=== PATIENT | male | born 1935 | race Caucasian/White ===

== ENCOUNTER 2023-09-04 23:36 | Emergency (ER) | payer MEDICARE, SELFPAY ==
--- NOTE | ~2023-09-04 | CT_ITS ---
EXAMINATION: CT HEAD WITHOUT CONTRAST CLINICAL INFORMATION: Facial droop, on anticoagulants. COMPARISON: None TECHNIQUE: Contiguous axial imaging was performed from the skull base to vertex without intravenous administration of contrast. This CT examination was performed using dose optimization techniques as appropriate, variously including the following: *Automated exposure control *Adjustment of mA and/or kV according to patient size (this includes techniques or standardized protocols for targeted exams where dose is matched to indication/reason for exam; i.e. extremities or head) *Use of iterative reconstruction technique DLP: 694 mGy-cm FINDINGS: There is a 0.5 cm hyperdense focus in the mid to right pasquale suspicious for a bleed. There is a 1 x 0.5 cm partially calcified hyperdense extra-axial lesion along the right anterior interhemispheric falx, most suggestive of a meningioma. No evidence of edematous territorial infarction. Scattered hypoattenuation in the periventricular and deep white matter are consistent with moderate to severe microangiopathy. Jamil-white matter differentiation is preserved. Proportional prominence of the ventricles and sulcal spaces. No evidence for obstructive hydrocephalus. No abnormal mass effect or midline shift. No extra-axial fluid collections. No acute soft tissue or osseous abnormalities. The mastoid air cells and paranasal sinuses are clear. Bilateral lens extraction. CT/CT head/brain wo IV con IMPRESSION: 1. There is a 0.5 cm hyperdense focus in the mid to right pasquale suspicious for a bleed. 2. No evidence of edematous territorial infarction. 3. 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 4. There is a 1 x 0.5 cm partially calcified hyperdense extra-axial lesion along the right anterior interhemispheric falx, most suggestive of a meningioma. This critical result was discussed with Bryce Mendoza MD at 09/05/2023 12:22 AM and it was ascertained that the content and urgency of the report was understood at the time of direct communication.
--- NOTE | 2023-09-04 23:47 | ECG_ITS ---
Test Reason : COLONJL Blood Pressure : / mmHG Vent. Rate : 082 BPM Atrial Rate : 000 BPM P-R Int : 000 ms QRS Dur : 128 ms QT Int : 400 ms P-R-T Axes : 000 -16 001 degrees QTc Int : 467 ms Atrial fibrillation with premature ventricular or aberrantly conducted complexes Right bundle branch block Inferior infarct , age undetermined Abnormal ECG No previous ECGs available Referred By: Bryce Mendoza Electronically Signed By:DENNIS GOMEZ
--- NOTE | 2023-09-04 23:49 | ED.NEUROSD ---
HPI - Neuro Symptoms/Deficit General Chief Complaint: Stroke Stated Complaint: right side face droop Time Seen by Provider: 09/04/23 23:38 Source: patient, EMS and RN notes reviewed Mode of arrival: EMS Limitations: no limitations History of Present Illness HPI Narrative: Patient 87 years old with history of paroxysmal AFib on Eliquis [facility] speech and right-sided facial droop and pinpoint right Lkw was 2030 patient denied any headache no vomiting no other deficits when arrived in the ER patient communicating without any dysarthria or aphasia but slow to speak moving all 4 extremities questionable right facial droop GCS 15 denies any headache no vomiting Related Data Allergies Allergy/AdvReac Type Severity Reaction Status Date / Time codeine Allergy Unknown Unknown Verified 09/04/23 23:53 gabapentin Allergy Unknown Unknown Verified 09/04/23 23:53 Penicillins Allergy Unknown Unknown Verified 09/04/23 23:53 Review of Systems Review of Systems: Yes all other systems are reviewed and are negative [facility] Past Medical History Medical History Muscle weakness Polyneuropathy CKD (chronic kidney disease) HTN (hypertension) Paroxysmal A-fib Social History Social History Smoked in Last 30 Days: No Use of substances other than those prescribed or required for medical reasons: No Advance Directives: No Advance Directives Information Provided: No Physical Exam Vital Signs: Vital Signs: Last Vital Signs Temp 97.2 F 09/05/23 01:47 Pulse 89 09/05/23 01:47 Resp 14 09/05/23 01:47 BP 112/63 09/05/23 01:47 Pulse Ox 96 09/05/23 01:47 O2 Del Method Room Air 09/05/23 01:47 BMI result Body Mass Index 28.3 Appearance: Alert. Oriented X2. No acute distress. Eyes: Right pupil 2 mm left pupil 5 mm reacting to light ENT: Pharynx normal. Oral Mucosa moist Neck: Normal inspection. Neck supple. CVS: Irregularly irregular heart rate no murmur or rub or gallop, Pulses normal. Respiratory: No respiratory distress. Equal air entry bilateral, no wheezing/rales/rhonchi Abdomen: Soft and nontender. Bowel sounds are present, no mass palpable, no CVA tenderness Skin: Skin warm and dry. Normal skin color. Normal skin turgor. Extremities: No lower extremity edema. No calf tenderness Neuro: Oriented X 2. Slow to speak normal comprehension questionable right facial droop No motor deficit. No sensory deficit.No cerebellar signs , cranial nerves II-XII intact Medical Decision Making Medical Decision Making [facility] Narrative: Patient with history of AFib on Eliquis with slow speech with unequal pupil right side 2 mm left-sided [address] scan showed 0.5 cm pontine bleed ??. Patient NIHSS score is 0 I did not appreciate any facial droop patient is speaking normally with normal expression and tone no focal deficits noticed. Case discussed with neurosurgical hand edge bander Dr. 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 Patient is at his baseline with stable vitals discharge [facility] Differential Diagnosis Differential Diagnoses: The differential diagnosis associated with the presentation includes CVA/bleed Lab Data [facility] Lab Attestation statement: I reviewed the patient's lab results. 09/05/23 00:18 09/05/23 00:18 Labs: Lab Results 09/05/23 09/05/23 Range/Units 00:18 00:29 WBC 8.6 (4.8-10.8) X10*3/uL RBC 3.63 L (4.60-5.80) X10*6/uL Hgb 12.7 L (14.0-18.0) g/dl Hct 39.0 L (42.0-52.0) % MCV 107.4 H (80.0-98.0) fL MCH 35.0 H (27.0-33.0) pg MCHC 32.6 (31.0-36.0) g/dl RDW 14.6 (11.0-16.0) % Plt Count 183 (160-400) X10*3/uL MPV 10.4 (9.4-12.4) fL Immature Gran % (Auto) 0.3 (0.0-0.4) % Neut % (Auto) 61.5 (45-73) % Lymph % (Auto) 21.2 (20-40) % [place] % (Auto) 11.4 H (2-11) % Eos % (Auto) 5.1 H (0-4) % Baso % (Auto) 0.5 (0-2) % Lymph # (Auto) 1.8 (1.2-4.9) X10*3/uL [place] # (Auto) 1.0 (0.1-1.2) X10*3/uL Eos # (Auto) 0.4 (0.0-0.4) X10*3/uL Baso # (Auto) 0.0 (0.0-0.2) X10*3/uL Abs Immat Gran (auto) 0.03 (0.00-0.03) X10*3/uL Absolute Neuts (auto) 5.3 (2.0-8.3) x10*3/uL Absolute Nucleated RBC 0.000 (0.0-0.012) X10*3/uL Nucleated RBC % (auto) 0.0 (0.0-0.2) /100WBC PT 15.7 H (11.1-13.3) SEC INR 1.3 H (0.9-1.1) Sodium 141 (135-145) mmol/L Potassium 3.8 (3.3-5.1) mmol/L Chloride 110 H (96-108) mmol/L Carbon Dioxide 21 L (22-29) mmol/L Anion Gap 14 (12-20) BUN 45 H (9-16) mg/dL Creatinine 1.33 (0.5-1.4) mg/dL Estim Creat Clear Calc 41.6 Estimated GFR 51 POC Glucose 101 (60-115) mg/dL Random Glucose 112 (60-115) mg/dL Calcium 9.9 (8.4-10.2) mg/dL Total Bilirubin 0.7 (0.0-1.0) mg/dL AST 42 H (5-37) U/L ALT 67 H (0-40) U/L Alkaline Phosphatase 128 H (39-117) U/L Total Protein 7.1 (6.5-8.0) g/dL Albumin 3.4 L (3.5-5.0) g/dL Independent Interpretation I performed an independent interpretation of an: EKG and CT Scan Interpretation: Atrial fibrillation with ventricular rate of 82 beats per minute right bundle-branch block no acute ST T wave changes no acute ischemia Radiology Impression Discussion of test interpretation with radiology: I have reviewed the radiologist's reading. External Record Review External record reviewed: Other (From [facility] MRI and CT scan on 07/14/2023 and 07/17/2023) NIH Stroke Scale Internal: Initial- Upon Arrival Level of Consciousness: Alert Level of Consciousness Questions: Answers both questions correctly Level of Consciousness Commands: Performs both tasks correctly Best Gaze: Normal Visual: No visual loss Facial Palsy: Normal Motor Arm (Right): No drift Motor Arm (Left): No drift Motor Leg (Right): No drift Motor Leg (Left): No drift Limb Ataxia: Absent Sensory: Normal Best Language: No aphasia Dysarthia: Normal Extinction and Inattention: No abnormality Score: 0 Critical Care Time Critical Care Time Critical Care Time: Yes Total Critical Care Time: 55 Attestation: The patient was critically ill with a high probability of imminent or life threatening deterioration. I spent greater than 60???minutes of discontinuous time evaluating the patient,delivering critical care at the bedside, discussing and evaluating pertinent data with consultants. Critical care time does not include time spent performing separately billable procedures or teaching. Total time spent performing critical care was 55 ???minutes. 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
[2023-09-04 23:52] VITALS: BP 131/64; PULSE 85; RESP 20; TEMP 36.6; O2SAT 98; BMI 28.3
[2023-09-04 23:54] VITALS: PULSE 74
--- NOTE | 2023-09-05 00:15 | PC.NURSE ---
2x attempts for iv by this RN without success. Dr. Mendoza aware states no need for iv at this time. nerupa pct at bedside attempting to obtain labs.
[2023-09-05 00:23] LABS: MANUAL DIFF FLAG NO
[2023-09-05 00:24] LABS: Basophils Percent Auto 0.5 % (0-2); Eosinophils Absolute Auto 0.4 X10*3/uL (0.0-0.4); Eosinophils Percent Auto 5.1 % (0-4); Hemoglobin 12.7 g/dl (14.0-18.0); Imm Gran Abs Auto 0.03 X10*3/uL (0.00-0.03); Imm Gran Pct Auto 0.3 % (0.0-0.4); Lymphocytes Absolute Auto 1.8 X10*3/uL (1.2-4.9); Lymphocytes Percent Auto 21.2 % (20-40); Mean Corpuscular HGB Conc 32.6 g/dl (31.0-36.0); Mean Corpuscular Volume 107.4 fL (80.0-98.0); Mean Platelet Volume 10.4 fL (9.4-12.4); Monocytes Percent Auto 11.4 % (2-11); Neutrophils Absolute Auto 5.3 x10*3/uL (2.0-8.3); Neutrophils Percent Auto 61.5 % (45-73); Platelet Count 183 X10*3/uL (160-400); Red Blood Count 3.63 X10*6/uL (4.60-5.80); Red Cell Distribution Width 14.6 % (11.0-16.0); White Blood Count 8.6 X10*3/uL (4.8-10.8)
[2023-09-05 00:34] LABS: Glucose, Whole Blood 101 mg/dL (60-115)
[2023-09-05 00:37] VITALS: BP 132/70; PULSE 80; RESP 16; TEMP 36.3; O2SAT 97
--- NOTE | 2023-09-05 00:38 | MHC.EDTECH ---
PATIENT WAS BIBA FROM [facility] ,PATIENT WAS INCONIENT OF SMALL AMOUNT OF LOOSE STOOL ,CARE GIVEN AND BEDDING CHANGE ,EKG TAKEN AND WAS READ BY PROVIDER ,BLOOD DRAWN AND SENT TO LAB ,VITALS TAKEN AND PATIENT IS HOOKED UP TO [facility] .
[2023-09-05 00:39] LABS: Alanine Aminotransferase 67 U/L (0-40); Albumin Level 3.4 g/dL (3.5-5.0); Alkaline Phosphatase 128 U/L (39-117); Anion Gap 14 (12-20); Aspartate Amino Transferase 42 U/L (5-37); Bilirubin Total 0.7 mg/dL (0.0-1.0); Blood Urea Nitrogen 45 mg/dL (9-16); Calcium 9.9 mg/dL (8.4-10.2); Carbon Dioxide 21 mmol/L (22-29); Chloride 110 mmol/L (96-108); Creatinine Clr Calc Pharmacy 41.6; Estimated Glomerular Filt Rate 51; Glucose Random 112 mg/dL (60-115); Potassium 3.8 mmol/L (3.3-5.1); Sodium 141 mmol/L (135-145); Total Protein 7.1 g/dL (6.5-8.0)
[2023-09-05 00:41] LABS: INTERNATIONAL NORM RATIO 1.3 (0.9-1.1); Prothrombin Time 15.7 SEC (11.1-13.3)
[2023-09-05 01:47] VITALS: BP 112/63; PULSE 89; RESP 14; TEMP 36.2; O2SAT 96
--- NOTE | 2023-09-05 03:34 | PC.NURSE ---
report given to [facility] nurse educated on d/c instructions. per Dr. Mendoza findings are chronic and baseline for pt. questioned snf rn if he'd like to speak with Dr. Mendoza for further explanation, verbalize he understands d/c instructions and is in agreement with pt d/c back to facility.
== END 2023-09-05 02:55 | disposition skilled nursing facility (03) ==
PROVIDERS: Emergency Provider Internal Medicine; PCP Internal Medicine
DX: R47.81 Slurred speech (principal); I48.91 Unspecified atrial fibrillation; R51.9 Headache, unspecified; R29.810 Facial weakness; Z79.01 Long term (current) use of anticoagulants; Z79.899 Other long term (current) drug therapy
CPT/HCPCS: 36415; 70450; 80053; 82947; 85025; 85610; 93005; 99284

== ENCOUNTER → 2023-09-04 23:47 | Outpatient (BNV) | payer MEDICARE, SELFPAY | PROVIDERS: Emergency Provider Internal Medicine; PCP Internal Medicine; Visit Provider Internal Medicine | DX: I48.91 Unspecified atrial fibrillation (principal); R94.31 Abnormal electrocardiogram [ECG] [EKG] | CPT/HCPCS: 93010 ==

== ENCOUNTER 2024-11-19 22:38 | Inpatient (IN) | payer MEDICARE, MEDICAID, SELFPAY ==
--- NOTE | ~2024-11-19 | XR_ITS ---
CLINICAL HISTORY: sob Chest X-ray, 1 View COMPARISON: None FINDINGS: No consolidation. Mild atelectasis at the left lung base. No pleural effusion. No pneumothorax. No cardiomegaly. No acute fracture. IMPRESSION: No acute findings. This document has been electronically signed by: Jimi Snider MD on 11/20/2024 01:55:37
--- NOTE | ~2024-11-19 | CT_ITS ---
EXAMINATION: CT ABDOMEN PELVIS WITHOUT IV CONTRAST HISTORY: shock, evaluate for hydronephrosis COMPARISON: There are no prior studies for comparison. TECHNIQUE: CT scan of the abdomen and pelvis was performed without contrast using standard departmental protocol. Coronal and sagittal reformatted images were generated and reviewed. Oral contrast material was not administered at the request of the referring physician. This CT exam was performed with one or more of the following dose reduction techniques: automated exposure control, adjustment of the mA and/or kV according to patient size, use of iterative reconstruction technique. DLP: 754 mGy-cm FINDINGS: LOWER CHEST: There is subsegmental atelectasis versus scarring at both lung bases. There is no pleural effusion. CARDIOVASCULATURE: The heart is normal in size. There is no pericardial effusion. LIVER: The liver is normal in size and contour. The liver has an unremarkable unenhanced appearance. GALLBLADDER / BILE DUCTS: The gallbladder is unremarkable. There is no intra or extrahepatic biliary ductal dilatation. SPLEEN: The spleen is normal in size and has an unremarkable unenhanced appearance. PANCREAS: The pancreas has an unremarkable unenhanced appearance. ADRENAL GLANDS: Unremarkable. KIDNEYS/RETROPERITONEUM: No renal calculi are identified. There is no hydronephrosis. LYMPH NODES: No retroperitoneal lymphadenopathy is identified in the abdomen or pelvis. VASCULATURE: The abdominal aorta is normal in caliber. MESENTERY/PERITONEUM: No free fluid. No masses. There is no free intraperitoneal gas. STOMACH: The stomach is collapsed, limiting evaluation. SMALL BOWEL: The small bowel is normal in caliber. COLON: There is extensive diverticulosis throughout the entire colon. There is an inflammatory process centered at the hepatic flexure of the colon with associated wall thickening and pericolonic inflammatory stranding. Findings may represent diverticulitis. There is no adjacent extraluminal gas or fluid collection. APPENDIX: Normal. URINARY BLADDER/PELVIC ORGANS: The urinary bladder is collapsed with Bella catheter. There is mild enlargement of the prostate. 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 CT/CT abdomen pelvis wo IV con IMPRESSION: 1. Inflammatory process centered at the hepatic flexure of the colon with associated diverticulosis, wall thickening, and pericolonic fluid. Findings may represent diverticulitis. Follow-up colonoscopy is recommended to exclude an underlying mass. 2. No evidence of hydronephrosis. Electronically signed by: Negro Rodríguez MD 11/20/2024 11:20 AM EDT RP
[2024-11-19 22:40] VITALS: BP 112/70; PULSE 99; O2SAT 19
[2024-11-19 22:45] VITALS: BP 114/54; PULSE 94; RESP 20; TEMP 39.2; O2SAT 86; BMI 34.1
[2024-11-19 22:51] VITALS: O2SAT 87
--- NOTE | 2024-11-19 23:08 | ED.GENADULT ---
HPI - General Adult General Chief complaint: Urogenital-Male Stated complaint: ?sepsis, foul smelling urine, ?uti, fever Time Seen by Provider: 11/19/24 22:41 Source: patient and EMS Mode of arrival: EMS Limitations: no limitations History of Present Illness ED Provider: Dr. Melany Chris HPI narrative: Patient comes to the emergency room via ambulance from a custodial facility, [facility]. according to the staff, patient has had foul smelling urine and fever. According to the patient, other than the fever he has no complaints, denies abdominal pain. [facility] the [facility] reported that the patient had a fever of 101.8 at 21:15. Related Data Allergies Allergy/AdvReac Type Severity Reaction Status Date / Time codeine Allergy Unknown Unknown Verified 11/19/24 22:47 gabapentin Allergy Unknown Unknown Verified 11/19/24 22:47 Penicillins Allergy Unknown Unknown Verified 11/19/24 22:47 Review of Systems Review of Systems: Constitutional : No Weight loss, complaining of fever and chills, No Night Sweats, No Fatigue, No Malaise ENT/Mouth : No Hearing loss, No Ear Pain, No Nasal Congestion, No Sinus Pain, No Hoarseness, No sore throat, No Rhinorrhea, No Swallowing Difficulty Eyes: No Eye Pain, No Swelling, No Redness, No Foreign Body, No Discharge, No Vision Changes Cardiovascular : No Chest Pain, No SOB, No Dyspnea on Exertion, No Orthopnea, No Edema, No Palpitations Respiratory : No Cough, No Sputum, No Wheezing, No Smoke Exposure, No Dyspnea Gastrointestinal : No Nausea, No Vomiting, No Diarrhea, No Constipation, No abdominal Pain, No Hematochezia, No Melena Genitourinary : no irregular bleeding, No Dysuria, No Urinary Frequency, No Hematuria, No Urinary Incontinence, No Urgency, No Flank Pain, No Urinary Flow Changes, No Hesitancy Musculoskeletal : No joint pain, No Myalgias, No Joint Swelling Skin : No Skin Lesions, No rash Neuro : No Weakness, No Numbness, No Paresthesias, No Loss of Consciousness, No Dizziness, No Headache Psych : No Anxiety/Panic, No Depression, No SI/HI/AH/VH, No Social Issues, Heme/Lymph: No Bruising, No Bleeding,No Lymphadenopathy Endocrine : No Polyuria, No Polydipsia, No Temperature Intolerance PMFSH Past Medical History Medical History Muscle weakness Polyneuropathy CKD (chronic kidney disease) HTN (hypertension) Paroxysmal A-fib Physical Exam ED Vital Signs: Vital Signs - 24 hr 11/19/24 22:45 11/19/24 22:51 11/19/24 23:17 Temperature 102.5 F H Pulse Rate 94 88 Respiratory Rate 20 20 Blood Pressure 114/54 L 89/42 L Pulse Oximetry 86 L 87 L 93 Oxygen Delivery Method Room Air Room Air Nasal Cannula Oxygen Flow Rate 2 11/19/24 23:44 11/19/24 23:51 11/20/24 00:06 Temperature Pulse Rate 97 Respiratory Rate 21 H Blood Pressure 89/50 L 94/47 L 86/45 L Pulse Oximetry 94 Oxygen Delivery Method Nasal Cannula Ambu-Bag Oxygen Flow Rate 11/20/24 00:37 11/20/24 00:39 11/20/24 01:04 Temperature 99.6 F Pulse Rate 75 78 81 Respiratory Rate 24 H Blood Pressure 76/42 L 84/40 L 88/49 L Pulse Oximetry 95 Oxygen Delivery Method Nasal Cannula Oxygen Flow Rate 1 11/20/24 01:17 Temperature Pulse Rate 78 Respiratory Rate 22 H Blood Pressure 102/56 L Pulse Oximetry 97 Oxygen Delivery Method Nasal Cannula Oxygen Flow Rate 1 BMI result Body Mass Index 34.1 Const Other: Appearance: Alert. Oriented X3. No acute distress. Eyes: Pupils equal, round and reactive to light. ENT: Pharynx normal. Neck: Normal inspection. Neck supple. No lymph nodes noted. No crepitus CVS: Normal heart rate and rhythm. Pulses normal. Normal S1 and S2 Respiratory: No respiratory distress. Breath sounds normal. No Wheezing. No rales Abdomen: Soft and nontender. No rigidity. No distention. Skin: Skin warm and dry. Normal skin color. Normal skin turgor. Extremities: No lower extremity edema. No Lacerations. No Rash Neuro: Oriented X 3. No motor deficit. No sensory deficit. Moving all extremities. No slurred speech. CN 2 through 12 grossly intact Psych: calm, cooperative, normal affect Course Course Course Narrative: empirically, patient is being treated with IV fluids and IV antibiotics. Patient is being treated based on ideal weight of 55 kg, patient is obese. all of patient's labs pending patient denies any pain at this time Medications Administered Generic Name Dose Route Start Last Admin Trade Name Freq PRN Reason Stop Dose Admin Norepinephrine Bitartrate 8 mg in 250 mls @ 0 mls/hr 11/20/24 00:30 11/20/24 01:04 Levophed IVCONT 0.07 mcg/kg/min .Q0M SOLE 12.2 mls/hr Titration Protocol Per Protocol Discontinued Medications Generic Name Dose Route Start Last Admin Trade Name Freq PRN Reason Stop Dose Admin Acetaminophen 975 mg 11/19/24 23:04 11/19/24 23:12 Acetaminophen 325 Mg Tablet PO 11/19/24 23:05 975 mg ONCE ONE Administration Ceftriaxone Sodium 1 gm 11/19/24 23:04 11/19/24 23:12 Ceftriaxone Sodium 1 Gm Vial IVPUSH 11/19/24 23:05 1 gm ONCE ONE Administration Sodium Chloride 1,700 mls @ 999 mls/hr 11/19/24 23:04 11/20/24 01:05 Ns IVCONT 11/20/24 00:46 Infused .Q1H43M ONE Infusion Azithromycin 500 mg/ Sodium 250 mls @ 125 mls/hr 11/19/24 23:04 11/19/24 23:24 Chloride IV 11/20/24 01:03 125 mls/hr ONCE ONE Administration Albumin Human 50 mls @ 100 mls/hr 11/19/24 23:45 11/20/24 01:06 Kedbumin 25 % IV 11/20/24 00:44 Infused Q30M SOLE Infusion Medical Decision Making Medical Decision Making MDM Narrative: at 23:26, patient's blood pressure is 89/42, patient has a fever of 102.5 rectally. It was also informed that the patient's oxygen saturation is 86% on room air. At this time, 23:26 sepsis alert was called patient already receiving IV fluids and IV antibiotics my interpretation of labs: Patient's white blood cell count is 12.1, patient is chronically anemic. Patient's creatinine today is 1.73, previously over a year ago was 1.33. Unclear if this is new for the patient. Patient does have history of CKD stage 3. Lactic acid 1.4 LFTs within normal limits. It was noted the patient's BNP is 473. To patient's knowledge and then his documentation, there is no history of CHF. Patient's x-ray pending. Patient already received IV fluids and IV antibiotics. Patient's albumin slightly decreased, patient also receiving IV albumin urinalysis is positive for UTI, patient has already been covered with IV Fluids and antibiotics despite fluids and antibiotics and albumin, patient's blood pressure keeps dropping, currently 76/42. Levophed has been started. Patient will need an ICU admission. Chest x-ray my interpretation: No overt pulmonary edema, possible infiltrate in the right lower lobe. Patient was already treated with IV antibiotics. Patient Levophed, blood pressure 102/ 56 I discussed the patient with Dr. Pierce, patient being admitted to the ICU Differential Diagnosis Differential Diagnoses: The differential diagnosis associated with the presentation includes ( UTI, pneumonia, CHF, viral URI) Admission/Observation Consideration of admission/observation: Escalation of care including admission/observation considered Consult Healthcare Provider Management of the patient was discussed with: Hospitalist Lab Data MDM Lab Attestation statement: I reviewed the patient's lab results. 11/19/24 22:55 11/19/24 22:55 Labs: Lab Results 11/19/24 11/19/24 11/19/24 Range/Units 22:55 22:56 23:56 WBC 12.1 H (4.8-10.8) X10*3/uL RBC 3.09 L (4.60-5.80) X10*6/uL Hgb 10.7 L (14.0-18.0) g/dl Hct 31.8 L (42.0-52.0) % MCV 102.9 H (80.0-98.0) fL MCH 34.6 H (27.0-33.0) pg MCHC 33.6 (31.0-36.0) g/dl RDW 13.2 (11.0-16.0) % Plt Count 158 L (160-400) X10*3/uL MPV 10.9 (9.4-12.4) fL Immature Gran % (Auto) 0.3 (0.0-0.4) % Neut % (Auto) 93.9 H (45-73) % Lymph % (Auto) 3.2 L (20-40) % [place] % (Auto) 2.3 (2-11) % Eos % (Auto) 0.0 (0-4) % Baso % (Auto) 0.3 (0-2) % Lymph # (Auto) 0.4 L (1.2-4.9) X10*3/uL [place] # (Auto) 0.3 (0.1-1.2) X10*3/uL Eos # (Auto) 0.0 (0.0-0.4) X10*3/uL Baso # (Auto) 0.0 (0.0-0.2) X10*3/uL Abs Immat Gran (auto) 0.04 H (0.00-0.03) X10*3/uL Absolute Neuts (auto) 11.3 H (2.0-8.3) x10*3/uL Absolute Nucleated RBC 0.000 (0.0-0.012) X10*3/uL Nucleated RBC % (auto) 0.0 (0.0-0.2) /100WBC Smear Tech's Comments VERIFIED Sodium 140 (135-145) mmol/L Potassium 4.0 (3.3-5.1) mmol/L Chloride 106 (96-108) mmol/L Carbon Dioxide 24 (22-29) mmol/L Anion Gap 14 (12-20) BUN 33 H (9-16) mg/dL Creatinine 1.73 H (0.5-1.4) mg/dL Estim Creat Clear Calc 31.5 Estimated GFR 38 Random Glucose 120 H (60-115) mg/dL Lactic Acid 1.4 (0.5-2.0) mmol/L Calcium 8.7 D (8.4-10.2) mg/dL Total Bilirubin 0.7 (0.0-1.0) mg/dL Direct Bilirubin 0.3 (0.0-0.5) mg/dL AST 30 (5-37) U/L ALT 14 (0-40) U/L Alkaline Phosphatase 70 (39-117) U/L B-Natriuretic Peptide 473 H (<100) pg/mL Total Protein 6.2 L (6.5-8.0) g/dL Albumin 3.3 L (3.5-5.0) g/dL Urine Color Urine Appearance Urine pH (5.0-9.0) Ur Specific [place] (1.005-1.025) Urine Protein (Neg-Trace) mg/dL Urine Glucose (UA) (Negative) mg/dL Urine Ketones (Negative) mg/dL Urine Blood (Negative) Urine Nitrite (Negative) Ur Leukocyte Esterase (Negative) Urine RBC (0-2) /HPF Urine WBC (0-5) /HPF Ur Squamous Epith Cells (0-2) /HPF Urine Bacteria (None Seen) Hyaline Casts (0-2) /LPF Influenza Type A (PCR) NEGATIVE (Negative) Influenza Type B (PCR) NEGATIVE (Negative) RSV RNA Qual (PCR) NEGATIVE (Negative) SARS-CoV-2 RNA (RT-PCR) NEGATIVE (Negative) 11/19/24 Range/Units 23:59 WBC (4.8-10.8) X10*3/uL RBC (4.60-5.80) X10*6/uL Hgb (14.0-18.0) g/dl Hct (42.0-52.0) % MCV (80.0-98.0) fL MCH (27.0-33.0) pg MCHC (31.0-36.0) g/dl RDW (11.0-16.0) % Plt Count (160-400) X10*3/uL MPV (9.4-12.4) fL Immature Gran % (Auto) (0.0-0.4) % Neut % (Auto) (45-73) % Lymph % (Auto) (20-40) % [place] % (Auto) (2-11) % Eos % (Auto) (0-4) % Baso % (Auto) (0-2) % Lymph # (Auto) (1.2-4.9) X10*3/uL [place] # (Auto) (0.1-1.2) X10*3/uL Eos # (Auto) (0.0-0.4) X10*3/uL Baso # (Auto) (0.0-0.2) X10*3/uL Abs Immat Gran (auto) (0.00-0.03) X10*3/uL Absolute Neuts (auto) (2.0-8.3) x10*3/uL Absolute Nucleated RBC (0.0-0.012) X10*3/uL Nucleated RBC % (auto) (0.0-0.2) /100WBC Smear Tech's Comments Sodium (135-145) mmol/L Potassium (3.3-5.1) mmol/L Chloride (96-108) mmol/L Carbon Dioxide (22-29) mmol/L Anion Gap (12-20) BUN (9-16) mg/dL Creatinine (0.5-1.4) mg/dL Estim Creat Clear Calc Estimated GFR Random Glucose (60-115) mg/dL Lactic Acid (0.5-2.0) mmol/L Calcium (8.4-10.2) mg/dL Total Bilirubin (0.0-1.0) mg/dL Direct Bilirubin (0.0-0.5) mg/dL AST (5-37) U/L ALT (0-40) U/L Alkaline Phosphatase (39-117) U/L B-Natriuretic Peptide (<100) pg/mL Total Protein (6.5-8.0) g/dL Albumin (3.5-5.0) g/dL Urine Color Yellow Urine Appearance Cloudy Urine pH >= 9.0 (5.0-9.0) Ur Specific [place] 1.015 (1.005-1.025) Urine Protein 30 (1+) H (Neg-Trace) mg/dL Urine Glucose (UA) Negative (Negative) mg/dL Urine Ketones Negative (Negative) mg/dL Urine Blood Moderate (2+) H (Negative) Urine Nitrite Positive H (Negative) Ur Leukocyte Esterase Large (3+) H (Negative) Urine RBC >20 H (0-2) /HPF Urine WBC >50 H (0-5) /HPF Ur Squamous Epith Cells 0-2 (0-2) /HPF Urine Bacteria 4+ (None Seen) Hyaline Casts 0-2 (0-2) /LPF Influenza Type A (PCR) (Negative) Influenza Type B (PCR) (Negative) RSV RNA Qual (PCR) (Negative) SARS-CoV-2 RNA (RT-PCR) (Negative) Independent Interpretation I performed an independent interpretation of an: Plain X-Ray Independent Historian Clinical information obtained from an independent historian. History obtained from or confirmed by: EMS Critical Care Time Critical Care Time Critical Care Time: Yes Total Critical Care Time: 75 Attestation: I have personally provided critical care time. Time includes review of lab data, radiology results, discussion with consultants, and monitoring for potential decompensation. Intervention performed as documented. Discharge Plan Discharge Clinical Impression: Sepsis due to urinary tract infection, New onset of congestive heart failure Patient Disposition: Admitted As Inpatient Print Language: Greek
[2024-11-19] MEDS: Acetaminophen 325 MG TABLET 975 MG PO (23:12)
[2024-11-19] MEDS: cefTRIAXone sodium 1 GM VIAL IVPUSH (23:12)
[2024-11-19] MEDS: 0.9 % Sodium Chloride 1,700 ML 999 ML IVCONT (23:16)
[2024-11-19 23:17] VITALS: BP 89/42; PULSE 88; RESP 20; O2SAT 93
[2024-11-19 23:18] LABS: Basophils Percent Auto 0.3 % (0-2); Hematocrit 31.8 % (42.0-52.0); Hemoglobin 10.7 g/dl (14.0-18.0); Imm Gran Abs Auto 0.04 X10*3/uL (0.00-0.03); Imm Gran Pct Auto 0.3 % (0.0-0.4); Lymphocytes Absolute Auto 0.4 X10*3/uL (1.2-4.9); Lymphocytes Percent Auto 3.2 % (20-40); MANUAL DIFF FLAG SCAN; Mean Corpuscular HGB Conc 33.6 g/dl (31.0-36.0); Mean Corpuscular Hemoglobin 34.6 pg (27.0-33.0); Mean Corpuscular Volume 102.9 fL (80.0-98.0); Mean Platelet Volume 10.9 fL (9.4-12.4); Monocytes Absolute Auto 0.3 X10*3/uL (0.1-1.2); Monocytes Percent Auto 2.3 % (2-11); Neutrophils Absolute Auto 11.3 x10*3/uL (2.0-8.3); Neutrophils Percent Auto 93.9 % (45-73); Platelet Count 158 X10*3/uL (160-400); Red Blood Count 3.09 X10*6/uL (4.60-5.80); Red Cell Distribution Width 13.2 % (11.0-16.0); SCAN SMEAR FLAG 1; White Blood Count 12.1 X10*3/uL (4.8-10.8)
[2024-11-19] MEDS: Azithromycin 500 MG in 0.9 % Sodium Chloride 250 ML 125 MG IV (23:24)
[2024-11-19 23:27] LABS: Lactic Acid 1.4 mmol/L (0.5-2.0)
[2024-11-19 23:28] LABS: Alanine Aminotransferase 14 U/L (0-40); Albumin Level 3.3 g/dL (3.5-5.0); Alkaline Phosphatase 70 U/L (39-117); Anion Gap 14 (12-20); Aspartate Amino Transferase 30 U/L (5-37); Bilirubin Direct 0.3 mg/dL (0.0-0.5); Bilirubin Total 0.7 mg/dL (0.0-1.0); Blood Urea Nitrogen 33 mg/dL (9-16); Calcium 8.7 mg/dL (8.4-10.2); Carbon Dioxide 24 mmol/L (22-29); Chloride 106 mmol/L (96-108); Creatinine Clr Calc Pharmacy 31.5; Estimated Glomerular Filt Rate 38; Glucose Random 120 mg/dL (60-115); Sodium 140 mmol/L (135-145); Total Protein 6.2 g/dL (6.5-8.0)
[2024-11-19 23:33] LABS: B Type Natriuretic Peptide 473 pg/mL (<100)
[2024-11-19 23:38] LABS: SLIDE REVIEW VERIFIED
[2024-11-19 23:44] VITALS: BP 89/50; PULSE 97; RESP 21; O2SAT 94
[2024-11-19 23:51] VITALS: BP 94/47
[2024-11-20] VITALS (33 sets, daily range): BP systolic 76–144; BP diastolic 40–68; PULSE 54–81; RESP 13–24; TEMP 35.9–38.8; O2SAT 93–100; BMI 39.5
--- NOTE | 2024-11-20 | ECG_ITS ---
Test Reason : new onset chf Blood Pressure : */* mmHG Vent. Rate : 64 BPM Atrial Rate : 64 BPM P-R Int : 196 ms QRS Dur : 126 ms QT Int : 488 ms P-R-T Axes : 75 -12 -11 degrees QTcB Int : 503 ms Sinus rhythm with Premature atrial complexes Right bundle branch block Abnormal ECG When compared with ECG of 04-Sep-2023 23:57, Sinus rhythm has replaced Atrial fibrillation T wave inversion no longer evident in Anterior leads Referred By: Scarlett Bassett Electronically Signed By: FRANKLYN JIMENEZ MD
[2024-11-20 00:06] LABS: Appearance Urine Cloudy; Color Urine Yellow; Glucose Urine UA Negative (Negative); Leukocyte Esterase Urine Large (3+) (Negative); Nitrite Urine Positive (Negative); PH >= 9.0 (5.0-9.0); Specific Gravity - Urine 1.015 (1.005-1.025); UMIC TRIGGER UACC YES; Urine Blood Moderate (2+) (Negative); Urine Ketones Negative (Negative); Urine Protein 30 (1+) mg/dL (Neg-Trace)
[2024-11-20] MEDS: Albumin Human 25 % 50 ML 100 ML IV ×2 (00:08→00:35)
--- NOTE | 2024-11-20 00:12 | MHC.EDTECH ---
This pct assumed care of Patient at 2300 ,vitals taken ,Temp was not taken at this time ,because ZACHARIAH Perry said to hold off in getting temp until Tylenol has time to work ,urine sample collected ,rsv/covid swab collected all sent to lab ,Patient belonings list done ,all safety measure in Place .
[2024-11-20 00:26] LABS: Bacteria Urine 4+ (None Seen); Hyaline Casts Urine 0-2 /LPF (0-2); RBC Urine >20 /HPF (0-2); Squamous Epithelial Cell Urine 0-2 /HPF (0-2); UACC Culture Trigger YES; WBC Urine >50 /HPF (0-5)
[2024-11-20] MEDS: Norepinephrine Bitartrate/D5W 8 MG/250 ML PLAST..BAG 8.72 MG IVCONT (00:37)
[2024-11-20 00:41] LABS: Influenza A PCR NEGATIVE (Negative); Influenza B PCR NEGATIVE (Negative); Resp Syncy Virus RNA Qual PCR NEGATIVE (Negative); SARS COV2 PCR INHOUSE NEGATIVE (Negative)
--- NOTE | 2024-11-20 02:33 | PM.CCHP ---
History of Present Illness Date of Service: 11/20/24 Attending physician on admission: Pelon Sesay Chief Complaint: Sepsis, New onset CHF Mr Young is a 89 year old male with history of hypertension, paroxysmal A-Fib, chronic kidney disease and polyneuropathy who was sent to the emergency room from his skilled? nursing facility for a fever and malodorous urine. The pt denied any abdominal pain or other complaints.? On arrival to the emergency room, temp was 102.5, blood pressure 114/54, heart rate 94.? O2 sat 86% on room air. Laboratory data significant for? WBC 12.1, hemoglobin 10.7, hematocrit 31.8, platelet 158, BUN 33, creatinine 1.73, lactic acid 1.4, BNP 473.? Urinalysis indicative of a UTI.? Respiratory panel negative. Imaging: CXR showed no acute findings.? ED course:? The patient became hypotensive. He received 1700 mL normal saline per sepsis protocol. He was given? ceftriaxone 1 g, Azithromycin 500 mg, 1 bag albumin, acetaminophen 1 g. Despite receiving colloids, crystalloids, antibiotics, the patient remained hypotensive and was started on a norepinephrine drip. Review of Systems Constitutional: Constitutional: Reports fever(s) and Denies headache(s) Eyes: Eyes: Denies blurry vision ENT: Denies dizziness, Denies headache(s) and Denies nasal congestion Cardiovascular: Cardiovascular: Denies chest pain and Denies dyspnea Respiratory: Respiratory: Denies dyspnea Gastrointestinal: Gastrointestinal: Denies diarrhea, Denies nausea and Denies vomiting Genitourinary: Genitourinary: Reports no additional male genitourinary complaints and Reports as per HPI Integumentary/Breasts: Skin/Breast: Denies rash, Denies sores and Denies wounds Neurologic: Denies dizziness and Denies headache(s) Endocrine: Endocrine: Denies polyphagia and Denies polydipsia [facility] Past Medical History Medical History Muscle weakness Polyneuropathy CKD (chronic kidney disease) HTN (hypertension) Paroxysmal A-fib Social History Social History Household Members: None Housing: Skilled Nursing Do you presently have visiting nurse or other home services: No Patient Tobacco Use Status: Never used Tobacco e-Cigarette/Vaping Use: Never Used Use of substances other than those prescribed or required for medical reasons: No Currently Displaying Signs/Symptoms of Drug Intoxication Withdrawal: No Any prior treatment program specific to substance use: No Have you been hit, kicked, punched, or otherwise hurt by someone within the past year? If so, by whom?: No Do you feel safe in your current relationship?: No Current Relationship Is there a partner from a previous relationship who is making you feel unsafe now?: No Are you made to feel afraid or neglected: No Advance Directives: No Advance Directives Information Provided: Yes Advance Directives on File: No Do you have a plan to hurt others: No Plan Recently lost weight without trying: Unsure Nutrition Risks: No Nutritional Risk Poor oral hygiene: No Meds Allergies Allergy/AdvReac Type Severity Reaction Status Date / Time codeine Allergy Unknown Unknown Verified 11/19/24 22:47 gabapentin Allergy Unknown Unknown Verified 11/19/24 22:47 Penicillins Allergy Unknown Unknown Verified 11/19/24 22:47 Active Medications: Current Medications Heparin Sodium (Porcine) (Heparin Sodium,Porcine 5,000 Unit/Ml Vial) 5,000 unit SUBCUT Q12H SOLE Norepinephrine Bitartrate (Levophed) 8 mg in 250 mls @ 0 mls/hr IVCONT .Q0M SOLE; Protocol Last Titration: 11/20/24 01:04 Dose: 0.07 mcg/kg/min, 12.2 mls/hr Home Medications ?Medication ?Instructions ?Recorded ?Confirmed ?Last Taken ?Type acetaminophen 325 mg tablet 650 mg PO Q6H PRN Fever/Pain 11/20/24 11/20/24 Unknown History (Tylenol) apixaban 2.5 mg tablet (Eliquis) 2.5 mg PO BID 11/20/24 11/20/24 Unknown History ascorbic acid (vitamin C) 500 mg 500 mg PO DAILY 11/20/24 11/20/24 Unknown History tablet bisacodyl 10 mg rectal suppository 10 mg TN DAILY PRN Constipation 11/20/24 11/20/24 Unknown History carboxymethylcellulose sodium 1 drp ophthalmic (eye) Q4H PRN Dry 11/20/24 11/20/24 Unknown History Eyes cholecalciferol (vitamin D3) 50 50 mcg PO DAILY 11/20/24 11/20/24 Unknown History mcg (2,000 unit) tablet (Vitamin D3) escitalopram oxalate 10 mg tablet 10 mg PO DAILY 11/20/24 11/20/24 Unknown History gabapentin 100 mg tablet 100 mg PO BID 11/20/24 11/20/24 Unknown History magnesium hydroxide 400 mg/5 mL 30 ml PO DAILY PRN Constipation 11/20/24 11/20/24 Unknown History oral suspension (Milk of Magnesia) melatonin 3 mg tablet 3 mg PO BEDTIME PRN Sleep 11/20/24 11/20/24 Unknown History mirtazapine 15 mg tablet (Remeron) 15 mg PO DAILY 11/20/24 11/20/24 Unknown History multivitamin 1 tab PO DAILY 11/20/24 11/20/24 Unknown History omeprazole 20 mg capsule,delayed 20 mg PO DAILY@0630 11/20/24 11/20/24 Unknown History release polyethylene glycol 3350 17 gram 17 g PO DAILY PRN Constipation 11/20/24 11/20/24 Unknown History oral powder packet (Miralax) sennosides 8.6 mg-docusate sodium 1 tab-cap PO DAILY 11/20/24 11/20/24 Unknown History 50 mg capsule sodium phosphates 19 gram-7 118 ml TN DAILY PRN Constipation 11/20/24 11/20/24 Unknown History gram/118 mL enema (Fleet Enema) tamsulosin 0.4 mg capsule (Flomax) 0.4 mg PO DAILY@1700 11/20/24 11/20/24 Unknown History trolamine salicylate 10 % lotion 1 appl topical Q8H PRN Pain 11/20/24 11/20/24 Unknown History Physical Exam Vital Signs: Vital Signs: Last Vital Signs Temp 97.9 F 11/20/24 01:53 Pulse 68 11/20/24 01:53 Resp 22 H 11/20/24 01:53 BP 99/56 L 11/20/24 01:53 Pulse Ox 97 11/20/24 01:53 O2 Del Method Nasal Cannula 11/20/24 01:53 O2 Flow Rate 1 11/20/24 01:53 BMI result Body Mass Index 34.1 Const: General: no acute distress and alert Orientation/consciousness: patient oriented x3 (answering appropriately.) HEENT: Head: Yes normocephalic and Yes atraumatic General nose exam: Normal external nose present (Nares patent, septum midline, sinuses nontender bilaterally.) Mouth: Normal oral and palatal mucosa present (No thrush, tongue in midline, mucosa moist.) Throat: Yes other (No erythema, no exudate.) Neck: Neck: Yes supple (no thyromegaly, trachea midline.) Carotids: normal carotid upstroke Resp: Auscultation: clear to auscultation bilaterally (normal work of breathing, no accessory muscle use) Cardio: Jugular venous distension: no JVD Rate: regular rate Rhythm: regular rhythm Heart sounds: no gallops, no murmurs and no rubs Peripheral pulses: Peripheral pulses 2+ throughout GI: Palpation (GI): Soft to palpation (nondistended.) and nontender Neuro: General: patient oriented x3 (answering appropriately.) Extrem: General: Yes full ROM and Yes capillary refill normal Left lower extremity: edema Details: pitting and 1+ Psych: Affect: normal affect Attitude: cooperative Results Labs 11/21/24 05:14 11/21/24 05:14 Labs: Laboratory Results - last 24 hr 11/19/24 11/19/24 11/19/24 22:55 22:56 23:56 MCV 102.9 H MCH 34.6 H MCHC 33.6 RDW 13.2 Plt Count 158 L MPV 10.9 Immature Gran % (Auto) 0.3 Neut % (Auto) 93.9 H Lymph % (Auto) 3.2 L [place] % (Auto) 2.3 Eos % (Auto) 0.0 Baso % (Auto) 0.3 Lymph # (Auto) 0.4 L [place] # (Auto) 0.3 Eos # (Auto) 0.0 Baso # (Auto) 0.0 Abs Immat Gran (auto) 0.04 H Absolute Neuts (auto) 11.3 H Absolute Nucleated RBC 0.000 Nucleated RBC % (auto) 0.0 Smear Tech's Comments VERIFIED Anion Gap 14 Estim Creat Clear Calc 31.5 Estimated GFR 38 Random Glucose 120 H Lactic Acid 1.4 Calcium 8.7 D Total Bilirubin 0.7 Direct Bilirubin 0.3 AST 30 ALT 14 Alkaline Phosphatase 70 B-Natriuretic Peptide 473 H Total Protein 6.2 L Albumin 3.3 L Urine Color Urine Appearance Urine pH Ur Specific [place] Urine Protein Urine Glucose (UA) Urine Ketones Urine Blood Urine Nitrite Ur Leukocyte Esterase Urine RBC Urine WBC Ur Squamous Epith Cells Urine Bacteria Hyaline Casts Influenza Type A (PCR) NEGATIVE Influenza Type B (PCR) NEGATIVE RSV RNA Qual (PCR) NEGATIVE SARS-CoV-2 RNA (RT-PCR) NEGATIVE 11/19/24 23:59 MCV MCH MCHC RDW Plt Count MPV Immature Gran % (Auto) Neut % (Auto) Lymph % (Auto) [place] % (Auto) Eos % (Auto) Baso % (Auto) Lymph # (Auto) [place] # (Auto) Eos # (Auto) Baso # (Auto) Abs Immat Gran (auto) Absolute Neuts (auto) Absolute Nucleated RBC Nucleated RBC % (auto) Smear Tech's Comments Anion Gap Estim Creat Clear Calc Estimated GFR Random Glucose Lactic Acid Calcium Total Bilirubin Direct Bilirubin AST ALT Alkaline Phosphatase B-Natriuretic Peptide Total Protein Albumin Urine Color Yellow Urine Appearance Cloudy Urine pH >= 9.0 Ur Specific [place] 1.015 Urine Protein 30 (1+) H Urine Glucose (UA) Negative Urine Ketones Negative Urine Blood Moderate (2+) H Urine Nitrite Positive H Ur Leukocyte Esterase Large (3+) H Urine RBC >20 H Urine WBC >50 H Ur Squamous Epith Cells 0-2 Urine Bacteria 4+ Hyaline Casts 0-2 Influenza Type A (PCR) Influenza Type B (PCR) RSV RNA Qual (PCR) SARS-CoV-2 RNA (RT-PCR) Assessment and Plan (1) New onset of congestive heart failure: Status: Acute (2) Sepsis due to urinary tract infection: Status: Acute Plan 89 year old male with history of hypertension, paroxysmal A-Fib, chronic kidney disease and polyneuropathy?admitted to the ICU for management of sepsis and new onset congestive heart failure. Neuro:? No acute issues. Cardiac:? Sepsis- patient is hypotensive. Urine is positive for UTI? which is likely the source. Titrate off pressor as tolerated. BNP elevated. Patient has not have a history of heart failure.?Echocardiogram? In a.m. Pulmonary: No acute issues. Renal: ?DONNY. Underlying CKD. Monitor renal induces and urine output.? : UTI. Continue Ceftriaxone. GI:? No acute issues. Heme/Onc: ???No acute issues. ID:? Sepsis. UTI likely source. IV fluids were given in ER per sepsis protocol.? Cultures pending. Continue empiric coverage.? Psych: ??No acute issues. Misc: ?No acute issues. Prophylaxis: Pneumatic hoses, Heparin Diet: Cardiac Patient's care was discussed in detail with Dr. Sesay.? He is aware of all the above as well as the plan of care for this patient. Total time managing care of this patient today: 60 minutes.
--- NOTE | 2024-11-20 04:43 | HE.ICUCC ---
ICU Critical Care Nursing Note Assumed care of patient from ED. Patient A&Ox3. drowsy, asleep on arrival. SR with BBB, PAC's, and PVC's on telemetry LS clear, 1L O2NC Indwelling forrest catheter inserted, draining dark yellow urine, cloudy with sedi ment noted. Patient is bed bound at baseline Blanchable redness on bilateral buttocks
[2024-11-20] MEDS: Heparin Sodium,Porcine 5,000 UNIT/ML VIAL 5000 UNIT SUBCUT ×2 (05:41→17:03)
[2024-11-20 05:42] LABS: MANUAL DIFF FLAG NO
[2024-11-20 05:43] LABS: Basophils Absolute Auto 0.1 X10*3/uL (0.0-0.2); Basophils Percent Auto 0.5 % (0-2); Eosinophils Percent Auto 0.3 % (0-4); Imm Gran Abs Auto 0.11 X10*3/uL (0.00-0.03); Imm Gran Pct Auto 0.8 % (0.0-0.4); Lymphocytes Absolute Auto 0.8 X10*3/uL (1.2-4.9); Mean Corpuscular HGB Conc 33.3 g/dl (31.0-36.0); Mean Corpuscular Hemoglobin 35.6 pg (27.0-33.0); Mean Corpuscular Volume 106.8 fL (80.0-98.0); Mean Platelet Volume 10.8 fL (9.4-12.4); Monocytes Absolute Auto 0.7 X10*3/uL (0.1-1.2); Monocytes Percent Auto 4.8 % (2-11); Neutrophils Absolute Auto 12.3 x10*3/uL (2.0-8.3); Neutrophils Percent Auto 87.6 % (45-73); Platelet Count 144 X10*3/uL (160-400); Red Blood Count 2.81 X10*6/uL (4.60-5.80); Red Cell Distribution Width 13.4 % (11.0-16.0)
[2024-11-20 06:02] LABS: Phosphorus 3.4 mg/dL (2.7-4.5)
[2024-11-20 06:04] LABS: Albumin Level 3.3 g/dL (3.5-5.0); Anion Gap 13 (12-20); Blood Urea Nitrogen 30 mg/dL (9-16); Calcium 8.4 mg/dL (8.4-10.2); Carbon Dioxide 22 mmol/L (22-29); Chloride 111 mmol/L (96-108); Creatinine Clr Calc Pharmacy 32.6; Estimated Glomerular Filt Rate 36; Glucose Random 128 mg/dL (60-115); Magnesium 1.9 mg/dL (1.6-2.6); Potassium 3.9 mmol/L (3.3-5.1); Sodium 142 mmol/L (135-145)
--- NOTE | 2024-11-20 07:00 | CA_ITS ---
Transthoracic Echocardiogram Patient (Last, First, Middle): Juan Young, Gender: Male Date of : 1935 Age: 89 Procedure Date: 11/20/2024 Procedure Type: Transthoracic Echocardiogram Location: ICU Height: 165.1 cm Weight: 107.5 kg BSA: 2.13 m2 Heart Rate: 59 bpm BP: 125 / 57 mmHg Casino Attendant: RILEY Referring MD: Scarlett Bassett BECK TENDER Fire Marshal: Truman Torres MD Symptoms: new onset CHF Study Quality: Adequate w contrast ECG Rhythm: Bradycardia Conclusions: - 1. Normal LV ejection fraction 60 65% with grade 2 diastolic dysfunction 2. Moderately dilated left atrium 3. Mild aortic regurgitation 4. Mildly elevated right ventricular systolic pressure with mildly elevated right atrial pressures 5. No gross pericardial effusion Findings Procedure Information Contrast agent, definity, is being given per protocol without apparent complications. Left Ventricle Normal left ventricular size, thickness, and systolic function. The visually estimated ejection fraction is between 60-65%. Spectral Doppler is indicative of a pseudonormal filling pattern. E/E prime ratio is >15, consistent with elevated filling pressures. Evidence suggests grade II (moderate) diastolic dysfunction. Right Ventricle Mildly increased right ventricular cavity size. There is normal right ventricular systolic function. Atria The left atrium is moderately dilated. There is no evidence of interatrial shunt. The right atrium is mildly dilated. Aortic Valve The aortic valve was not well visualized. There is mild calcification of the aortic valve. There is no aortic valve stenosis. There is mild aortic valve regurgitation. Mitral Valve Likely normal mitral valve structure and function. There is trace mitral valve regurgitation. There is no mitral valve stenosis. Pulmonic Valve The pulmonic valve was not well visualized. Tricuspid Valve There is mild tricuspid valve regurgitation. Mildly elevated right atrial pressure. Mild pulmonary hypertension is present. Great Vessels The aorta was not well visualized. The pulmonary artery was not well visualized. Venous The inferior vena cava is mildly dilated. Pericardium/Pleural There is no evidence of pericardial effusion. Prior Study Comparison No prior study available for comparison. Measurements 2D Linear Measurements IVSd: 1.08 0.6-0.9/0.6-1.0 cm LVIDd: 4.48 3.9-5.3/4.2-5.9 cm LVIDd Index: 2.10 2.4-3.2/2.2-3.1 cm/m2 LVIDs: 2.90 2.0-3.6 cm LVPWd: 0.99 0.7-1.1 cm LA Diam: 4.80 2.7-3.8/3.0-4.0 cm LAIDs Index: 2.25 1.5-2.3 cm/m2 LV Mass: 199.01 67-162/88-224 g LV Mass Index: 93.43 43-95/49-115 g/m2 LVOT Diam: 2.40 3.0+(-)1.3 cm 2D Systolic Function EF 4C: 53.70 >55% EF 2C: 66.30 >55% EF BiP: 59.60 >55% Mitral Valve MV Pk E: 0.72 MV PK A: 0.57 MV Decel Time: 202.00 E/A: 1.30 E'Medial: 4.28 E/E' Med: 16.70 PHT: 59.00 MVA PHT: 3.73 Decel Kane: 3.55 Aortic Valve AoV Pk Ian: 1.48 AoV Mn Ian: 0.91 AoV VTI: 0.32 AoV Pk Grad: 9.00 Aov Mn Grad: 4.00 MEHREEN Cont.VTI: 2.44 LVOT LVOT Pk Ian: 0.78 LVOT Mn Ian: 0.57 LVOT VTI: 0.17 LVOT Pk Grad: 2.00 LVOT Mn Grad: 1.00 LVOT Diam: 2.40 LVOT Area: 4.52 Diastolic Function MV Pk E: 0.72 MV Pk A: 0.57 E/A: 1.30 E'Medial: 4.28 E/E' Med: 16.70 Right Ventricle TAPSE (mm): 18.60 TVS' Ian: 9.00 Tricuspid Valve TR Pk Ian: 2.96 TR Pk Grad: 35.00 RA Press: 8.00 RVSP: 43.00 Great Vessels Aorta Sinus of Valsalva: 3.70 2.0-3.5 cm Ao Asc: 3.60 2.1-3.4 cm Pulmonary Valve PV Pk Ian: 0.66 Peak PV Grad: 2.00 Updated in Other Vendor System with Status of Final Truman Torres MD electronically signed on 11/20/2024 1:17:43 PM with status of Final
--- NOTE | 2024-11-20 08:53 | PHA.MEDREC ---
Addendum entered by Parth Mackey 11/20/24 09:06: reviewed Original Note: Pharmacy Consult ? Medication Reconciliation Pharmacy has completed the medication reconciliation. Utilized list from [facility] to confirm med rec.
[2024-11-20] MEDS: Albumin Human 25 % 100 ML IV ×3 (09:36→20:00)
--- NOTE | 2024-11-20 14:46 | MHC.CM.PN ---
Met with pt to review d/c planning needs: [facility] and would like to return upon d/c. Per [facility], he is a Medicaid bed hold but can return to SNF under [facility] skilled services. Pt will need BLS transport. HCP and MOLST on file and verified w/pt. No additional needs identified.
--- NOTE | 2024-11-20 19:30 | PC.NURSE ---
Assumed care of patient 07:00. Pt had decreasing levophed gtt requirements. Levophed off approx 15:00, see SEP. Echo completed at bedside 09:[address] scan for Abdominal CT 10:00 for r/o hydronephrosis. Full bath provided 11:15 upon return from scan. Temperature 97-98F most of this shift. Temperature increased to 101 F 18:00. Pt provided partial cool bath at this time. Pt states baseline is pivot to wheelchair at [facility]. UO >30 ml/hr. Urine culture pending. UTI treatment with IV Ceftriaxone per SEP orders. Bella catheter in place draining dark yellow urine. High fall precautions in place. Pt turned and repositoned Q2H. Blachable redness to b/l buttocks and boggy heels elevated on pillows.
[2024-11-20] MEDS: Acetaminophen 325 MG TABLET 975 MG PO (20:10)
[2024-11-20] MEDS: cefTRIAXone sodium 1 GM VIAL IVPUSH (21:45)
[2024-11-21] VITALS (18 sets, daily range): BP systolic 105–169; BP diastolic 55–86; PULSE 54–96; RESP 17–27; TEMP 36.6–37.8; O2SAT 90–97; BMI 37.4
[2024-11-21] MEDS: Albumin Human 25 % 100 ML IV (02:39)
[2024-11-21] MEDS: Heparin Sodium,Porcine 5,000 UNIT/ML VIAL 5000 UNIT SUBCUT ×2 (05:16→17:26)
[2024-11-21 05:20] LABS: VBG Base Excess 0.5 mmol/L; VBG HCO3 24 mmol/L (22-26); VBG pCO2 37 mmHg; VBG pH 7.42 (7.32-7.43); VBG pO2 48 mmHg
[2024-11-21 05:21] LABS: MANUAL DIFF FLAG NO
[2024-11-21 05:26] LABS: Basophils Percent Auto 0.5 % (0-2); Eosinophils Absolute Auto 0.3 X10*3/uL (0.0-0.4); Eosinophils Percent Auto 5.6 % (0-4); Hematocrit 27.4 % (42.0-52.0); Hemoglobin 9.1 g/dl (14.0-18.0); Imm Gran Abs Auto 0.02 X10*3/uL (0.00-0.03); Imm Gran Pct Auto 0.3 % (0.0-0.4); Lymphocytes Absolute Auto 0.9 X10*3/uL (1.2-4.9); Lymphocytes Percent Auto 14.4 % (20-40); Mean Corpuscular HGB Conc 33.2 g/dl (31.0-36.0); Mean Corpuscular Hemoglobin 35.4 pg (27.0-33.0); Mean Corpuscular Volume 106.6 fL (80.0-98.0); Mean Platelet Volume 10.8 fL (9.4-12.4); Monocytes Absolute Auto 0.7 X10*3/uL (0.1-1.2); Monocytes Percent Auto 10.8 % (2-11); Neutrophils Absolute Auto 4.2 x10*3/uL (2.0-8.3); Neutrophils Percent Auto 68.4 % (45-73); Platelet Count 102 X10*3/uL (160-400); Red Blood Count 2.57 X10*6/uL (4.60-5.80); Red Cell Distribution Width 13.3 % (11.0-16.0); White Blood Count 6.1 X10*3/uL (4.8-10.8)
--- NOTE | 2024-11-21 05:43 | PC.NURSE ---
forrest removed [id number]
[2024-11-21 05:45] LABS: Albumin Level 4.1 g/dL (3.5-5.0); Anion Gap 14 (12-20); Blood Urea Nitrogen 28 mg/dL (9-16); Calcium 9.1 mg/dL (8.4-10.2); Carbon Dioxide 23 mmol/L (22-29); Chloride 111 mmol/L (96-108); Estimated Glomerular Filt Rate 40; Glucose Random 105 mg/dL (60-115); Phosphorus 2.7 mg/dL (2.7-4.5); Potassium 3.8 mmol/L (3.3-5.1); Sodium 144 mmol/L (135-145)
[2024-11-21 06:02] LABS: Venous Blood Gas Refer to POC result
[2024-11-21] MEDS: Furosemide 40 MG/4 ML VIAL IVPUSH (08:53)
--- NOTE | 2024-11-21 10:39 | PM.CCPN ---
Subjective Subjective Date of Service: 11/21/24 Interval History: 89-year-old gentleman with underlying paroxysmal AFib, CKD, hypertension, polyneuropathy admitted on 11/20/2024 with septic shock with likely source. Patient started on empiric broad-spectrum antibiotics and IV fluid resuscitation with initial poor response requiring pressor support. Patient admitted to the intensive care unit. CT abdomen demonstrated no urinary obstruction, but likely colitis/diverticulitis. No events overnight. Titrated off pressor support. Critical Care Time (minutes): 45 Physical Exam Vital Signs: Vital Signs: Last Vital Signs Temp 98.5 F 11/21/24 08:00 Pulse 96 11/21/24 10:00 Resp 18 11/21/24 10:00 BP 121/55 L 11/21/24 10:00 Pulse Ox 93 11/21/24 10:00 O2 Del Method Nasal Cannula 11/21/24 10:00 O2 Flow Rate 1 11/21/24 10:00 BMI result Body Mass Index 37.4 Const: General: no acute distress, alert and awake Eyes: Sclerae: sclerae normal EOM: EOMs intact bilaterally Neck: Neck: Yes no lymphadenopathy, Yes trachea midline and Yes supple Resp: Effort & Inspection: normal respiratory effort and no respiratory distress Auscultation: clear to auscultation bilaterally Cardio: Rate: regular rate Rhythm: regular rhythm Heart sounds: no gallops, no murmurs and no rubs GI: Palpation (GI): Soft to palpation and Other GI palpation findings present ( Nontender) Auscultation: normal bowel sounds Extrem: General: Yes no pedal edema, No clubbing and No cyanosis Objective Data Labs 11/21/24 05:14 11/21/24 05:14 Labs: Laboratory Results - last 24 hr 11/21/24 11/21/24 05:14 05:16 WBC 6.1 RBC 2.57 L Hgb 9.1 L Hct 27.4 L MCV 106.6 H MCH 35.4 H MCHC 33.2 RDW 13.3 Plt Count 102 L D MPV 10.8 Immature Gran % (Auto) 0.3 Neut % (Auto) 68.4 Lymph % (Auto) 14.4 L [place] % (Auto) 10.8 Eos % (Auto) 5.6 H Baso % (Auto) 0.5 Lymph # (Auto) 0.9 L [place] # (Auto) 0.7 Eos # (Auto) 0.3 Baso # (Auto) 0.0 Abs Immat Gran (auto) 0.02 Absolute Neuts (auto) 4.2 Absolute Nucleated RBC 0.000 Nucleated RBC % (auto) 0.0 VBG pH 7.42 VBG pCO2 37 VBG pO2 48 VBG HCO3 24 VBG O2 Saturation 80.0 VBG Base Excess 0.5 Sodium 144 Potassium 3.8 Chloride 111 H Carbon Dioxide 23 Anion Gap 14 BUN 28 H Creatinine 1.63 H Estim Creat Clear Calc 35.0 Estimated GFR 40 Random Glucose 105 Calcium 9.1 D Phosphorus 2.7 Magnesium 2.0 Albumin 4.1 Microbiology Microbiology Results: Microbiology 11/19/24 22:54 Blood - Venous Blood Culture - Preliminary No growth after 24 hours. 11/19/24 22:55 Blood - Venous Blood Culture - Preliminary No growth after 24 hours. Progress Note: A&P Assessment and plan (1) CKD (chronic kidney disease): Status: Acute (2) Paroxysmal A-fib: Status: Acute (3) HTN (hypertension): Status: Acute (4) Colitis: Status: Acute Plan Assessment: 89-year-old gentleman admitted with sepsis with versus GI source initially requiring pressor support, now titrated off. Plan: Neuro: No acute issues. Cardiac: Septic shock, resolved. Underlying hypertension and paroxysmal AFib. Pulmonary: No acute issues. Renal: No acute issues. Endo: No acute issues. GI: No acute issues. ID: Septic shock, resolved, likely GI versus source. Ceftriaxone switch to Levaquin. Cultures are pending. Heme/Onc: No acute issues. Psych: No acute issues. Miscellaneous: No acute issues. Prophylaxis: Heparin Diet: Regular Critical care time spent: 45 minutes Quality Stroke Does the patient have a stroke diagnosis?: No VTE Prior VTE?: No VTE Risk Level:: Medical - moderate - high VTE Device Contraindication: N/A - Device Ordered VTE Drug Contraindication: N/A - Med Ordered
[2024-11-21] MEDS: levoFLOXacin/D5W 750 MG/150 ML PIGGYBACK 100 MG IV (12:23)
--- NOTE | 2024-11-21 13:46 | P.CDIM_ITS ---
PROVIDER RESPONSE TEXT: To clarify, the appropriate diagnosis supported by the clinical indicators: CKD, stage 3 QUERY TEXT: PHYSICIAN'S DOCUMENTATION REQUEST Date of Query: 11/21/2024 01:06 PM EDT Patient Name: Juan Young Admit Date: 11/20/2024 Dear Pelon Sesay MD, A review of the medical record indicates additional documentation may be needed. Please review below and update the documentation accordingly. Clinical Indicators: BUN 28 Creatinine 1.63 eGFR 40.0 CKD documented Please clarify which of the following accurately represents the patient's renal status: CKD, stage 1 CKD, stage 2 CKD, stage 3 CKD, stage 4 ESRD - CKD V now requiring permanent dialysis and/or transplant Other (explain) Clinically unable to determine (explain) Thank you, Eli Yadav RN Use of terms such as suspected, likely, concern for, or probable (associated with a specific diagnosi s that is being evaluated, monitored, or treated as if it exists) are acceptable and can be coded in the inpatient se tting, when documented at the time of discharge. Please use your independent medical judgment in providing your response. THIS QUERY IS PART OF THE PERMANENT MEDICAL RECORD
--- NOTE | 2024-11-21 17:24 | PM.EVENT ---
Event Note Date of Service: 11/21/24 Event Note: This is an 89-year-old male with a history of chronic Bella catheter hypertension, paroxysmal atrial fibrillation, CKD sent from SNF for fever and malodorous urine found to have fever, hypoxia. Patient became hypotensive despite IV fluid resuscitation and was admitted to ICU for pressor support. CT scan obtained to eval for urinary obstruction but instead revealed colitis, Levaquin. Patient also noted to be bradycardic but asymptomatic Downgraded from the ICU on November 21 Septic shock due to UTI/colitis BP stable, leukocytosis resolved. Afebrile since November 20 IV levofloxacin Follow cultures Bradycardia Patient asymptomatic, blood pressure stable Cardiology consult pending Acute respiratory failure with hypoxia Status post Lasix x1 with improving oxygen requirements Thrombocytopenia Likely due to acute infection Follow CBC CKD3 renal function likely near baseline follow BMP Paroxysmal atrial fibrillation Eliquis on hold while in ICU-can likely resume in a.m. Mood Resume Lexapro, remeron BPH resume Flomax Time Spent With Patient Time: Total time managing care of this patient today ____ minutes.
[2024-11-22] VITALS (7 sets, daily range): BP systolic 117–153; BP diastolic 55–76; PULSE 60–90; RESP 17–20; TEMP 36.2–36.5; O2SAT 92–98
[2024-11-22] MEDS: Heparin Sodium,Porcine 5,000 UNIT/ML VIAL 5000 UNIT SUBCUT (05:35)
[2024-11-22] MEDS: Omeprazole 20 MG CAPSULE.DR PO (05:35)
[2024-11-22 06:35] LABS: MANUAL DIFF FLAG NO
[2024-11-22 07:00] LABS: Basophils Percent Auto 0.5 % (0-2); Eosinophils Absolute Auto 0.1 X10*3/uL (0.0-0.4); Eosinophils Percent Auto 1.6 % (0-4); Hematocrit 32.8 % (42.0-52.0); Imm Gran Abs Auto 0.04 X10*3/uL (0.00-0.03); Imm Gran Pct Auto 0.5 % (0.0-0.4); Lymphocytes Absolute Auto 1.1 X10*3/uL (1.2-4.9); Lymphocytes Percent Auto 13.4 % (20-40); Mean Corpuscular HGB Conc 33.5 g/dl (31.0-36.0); Mean Corpuscular Hemoglobin 35.1 pg (27.0-33.0); Mean Corpuscular Volume 104.8 fL (80.0-98.0); Mean Platelet Volume 11.7 fL (9.4-12.4); Monocytes Absolute Auto 0.8 X10*3/uL (0.1-1.2); Monocytes Percent Auto 9.6 % (2-11); Neutrophils Absolute Auto 6.1 x10*3/uL (2.0-8.3); Neutrophils Percent Auto 74.4 % (45-73); Platelet Count 135 X10*3/uL (160-400); Red Blood Count 3.13 X10*6/uL (4.60-5.80); Red Cell Distribution Width 12.9 % (11.0-16.0); White Blood Count 8.2 X10*3/uL (4.8-10.8)
[2024-11-22 07:13] LABS: Anion Gap 16 (12-20); Blood Urea Nitrogen 26 mg/dL (9-16); Calcium 9.5 mg/dL (8.4-10.2); Carbon Dioxide 25 mmol/L (22-29); Chloride 104 mmol/L (96-108); Creatinine Clr Calc Pharmacy 36.6; Estimated Glomerular Filt Rate 42; Glucose Random 114 mg/dL (60-115); Magnesium 1.9 mg/dL (1.6-2.6); Potassium 3.4 mmol/L (3.3-5.1); Sodium 142 mmol/L (135-145)
[2024-11-22] MEDS: Multivitamin TABLET 1 TAB PO (07:55)
[2024-11-22] MEDS: Mirtazapine 15 MG TABLET PO (07:55)
[2024-11-22] MEDS: Escitalopram Oxalate 10 MG TABLET PO (07:55)
--- NOTE | 2024-11-22 10:55 | MHC.CM.PN ---
Per ROUNDS discussion, Patient is an ICU downgrade and is not yet medically cleared for dc. Patient will benefit from a PT Eval to assist with disposition and CM will continue to follow.
[2024-11-22] MEDS: levoFLOXacin/D5W 750 MG/150 ML PIGGYBACK 100 MG IV (11:07)
--- NOTE | 2024-11-22 11:17 | P.CONCA_ITS ---
History of Present Illness History of Present Illness Date of Service: 11/22/24 Requesting physician: Karishma Dos Santos Consult reason: other (Bradycardia) Chief complaint: Fever Narrative: I was asked to see him Juan for cardiology consultation today for reported bradycardia. I reviewed the chart and did not see any evidence of bradycardia, there are no recorded strips. Appears to be this happened while patient was on vasopressors and hypotensive. This appears to be transient. Reviewing the strips in the chart from ICU as well as reviewing monitoring here on telemetry patient has no significant bradycardia but has frequent PVCs often in bigeminal pattern. Patient says that he has had irregular heartbeat for a long time. He also has history of atrial fibrillation and is on Eliquis at home. Patient has no cardiac symptoms. He came to the hospital with septic shock requiring vasopressor therapy and ICU admission related to UTI/colitis. He was treated aggressively fluids and despite the remained hypotensive and then add to be prescribed Levophed. Patient since then has been treated and doing well. Feeling okay. Currently has no cardiac symptoms. Denies any palpitations. Has no prior history of syncope or lightheadedness. intermediate facility resident because of his inability to walk because of his left foot issues as per him. He has prior history of hypertension as well as chronic kidney disease. No known history of congestive heart failure. Although admission he was noted to have hypoxemia as well as was noted to have elevated BNP. Subsequent echocardiogram shows normal LV ejection fraction with grade 2 diastolic dysfunction without major valvular abnormality with mildly elevated right ventricular systolic pressure mildly elevated right atrial pressures. Currently having no signs of heart failure. Review of Systems 2 Constitutional: Constitutional: Denies chills, Denies fever(s) and Reports weakness Eyes: Eyes: Reports no additional eye complaints Cardiovascular: Cardiovascular: Reports no additional cardiovascular complaints Respiratory: Respiratory: Reports no additional respiratory complaints Gastrointestinal: Gastrointestinal: Reports no additional gastrointestinal complaints Musculoskeletal: Musculoskeletal: Reports no additional musculoskeletal complaints Neurologic: Reports weakness Psychiatric: Psychiatric: Reports no additional psychiatric complaints Allergic/Immunologic: Allergic/Immunologic: Reports no additional allergic/immunologic complaints [facility] Past Medical History Medical History Muscle weakness Polyneuropathy CKD (chronic kidney disease) HTN (hypertension) Paroxysmal A-fib Social History Social History Household Members: None Housing: [facility] Do you presently have visiting nurse or other home services: No Patient Tobacco Use Status: Never used Tobacco e-Cigarette/Vaping Use: Never Used Use of substances other than those prescribed or required for medical reasons: No Currently Displaying Signs/Symptoms of Drug Intoxication Withdrawal: No Any prior treatment program specific to substance use: No Have you been hit, kicked, punched, or otherwise hurt by someone within the past year? If so, by whom?: No Do you feel safe in your current relationship?: No Current Relationship Is there a partner from a previous relationship who is making you feel unsafe now?: No Are you made to feel afraid or neglected: No Advance Directives: No Advance Directives Information Provided: Yes Advance Directives on File: No Do you have a plan to hurt others: No Plan Recently lost weight without trying: Unsure Nutrition Risks: No Nutritional Risk Poor oral hygiene: No Meds Allergies Allergy/AdvReac Type Severity Reaction Status Date / Time codeine Allergy Unknown Unknown Verified 11/19/24 22:47 gabapentin Allergy Unknown Unknown Verified 11/19/24 22:47 Penicillins Allergy Unknown Unknown Verified 11/19/24 22:47 Active Medications: Current Medications Acetaminophen (Acetaminophen 325 Mg Tablet) 975 mg PO Q6H PRN PRN Reason: Fever >101 Last Admin: 11/20/24 20:10 Dose: 975 mg Escitalopram Oxalate (Escitalopram Oxalate 10 Mg Tablet) 10 mg PO DAILY [facility] Last Admin: 11/22/24 07:55 Dose: 10 mg Heparin Sodium (Porcine) (Heparin Sodium,Porcine 5,000 Unit/Ml Vial) 5,000 unit SUBCUT Q12H [facility] Last Admin: 11/22/24 05:35 Dose: 5,000 unit Levofloxacin (Levaquin) 750 mg in 150 mls @ 100 mls/hr IV Q24H [facility] Last Admin: 11/22/24 11:07 Dose: 100 mls/hr Mirtazapine (Mirtazapine 15 Mg Tablet) 15 mg PO DAILY [facility] Last Admin: 11/22/24 07:55 Dose: 15 mg Multivitamins/Vitamin C (Multivitamin Tablet) 1 tab PO DAILY [facility] Last Admin: 11/22/24 07:55 Dose: 1 tab Omeprazole (Omeprazole 20 Mg Capsule.) 20 mg PO DAILY@0630 [facility] Last Admin: 11/22/24 05:35 Dose: 20 mg Polyethylene Glycol (Polyethylene Glycol 3350 17 Gm Powd.Pack) 17 gm PO DAILY PRN PRN Reason: Constipation Senna/Docusate Sodium (Sennosides/Docusate Sodium Tablet) 1 tab PO DAILY [facility] Last Admin: 11/22/24 07:59 Dose: Not Given Tamsulosin HCl (Tamsulosin Hcl 0.4 Mg Capsule) 0.4 mg PO DAILY@1700 [facility] Home Medications ?Medication ?Instructions ?Recorded ?Confirmed ?Last Taken ?Type acetaminophen 325 mg tablet 650 mg PO Q6H PRN Fever/Pain 11/20/24 11/20/24 Unknown History (Tylenol) apixaban 2.5 mg tablet (Eliquis) 2.5 mg PO BID 11/20/24 11/20/24 Unknown History ascorbic acid (vitamin C) 500 mg 500 mg PO DAILY 11/20/24 11/20/24 Unknown History tablet bisacodyl 10 mg rectal suppository 10 mg ID DAILY PRN Constipation 11/20/24 11/20/24 Unknown History carboxymethylcellulose sodium 1 drp ophthalmic (eye) Q4H PRN Dry 11/20/24 11/20/24 Unknown History Eyes cholecalciferol (vitamin D3) 50 50 mcg PO DAILY 11/20/24 11/20/24 Unknown History mcg (2,000 unit) tablet (Vitamin D3) escitalopram oxalate 10 mg tablet 10 mg PO DAILY 11/20/24 11/20/24 Unknown History gabapentin 100 mg tablet 100 mg PO BID 11/20/24 11/20/24 Unknown History magnesium hydroxide 400 mg/5 mL 30 ml PO DAILY PRN Constipation 11/20/24 11/20/24 Unknown History oral suspension (Milk of Magnesia) melatonin 3 mg tablet 3 mg PO BEDTIME PRN Sleep 11/20/24 11/20/24 Unknown History mirtazapine 15 mg tablet (Remeron) 15 mg PO DAILY 11/20/24 11/20/24 Unknown History multivitamin 1 tab PO DAILY 11/20/24 11/20/24 Unknown History omeprazole 20 mg capsule,delayed 20 mg PO DAILY@0630 11/20/24 11/20/24 Unknown History release polyethylene glycol 3350 17 gram 17 g PO DAILY PRN Constipation 11/20/24 11/20/24 Unknown History oral powder packet (Miralax) sennosides 8.6 mg-docusate sodium 1 tab-cap PO DAILY 11/20/24 11/20/24 Unknown History 50 mg capsule sodium phosphates 19 gram-7 118 ml ID DAILY PRN Constipation 11/20/24 11/20/24 Unknown History gram/118 mL enema (Fleet Enema) tamsulosin 0.4 mg capsule (Flomax) 0.4 mg PO DAILY@1700 11/20/24 11/20/24 Unknown History trolamine salicylate 10 % lotion 1 appl topical Q8H PRN Pain 11/20/24 11/20/24 Unknown History Physical Exam 2 Vital Signs: Vital Signs: Last Vital Signs Temp 97.7 F 11/22/24 07:46 Pulse 90 11/22/24 07:46 Resp 20 11/22/24 07:46 BP 153/76 H 11/22/24 07:46 Pulse Ox 96 11/22/24 07:46 O2 Del Method Nasal Cannula 11/22/24 07:46 O2 Flow Rate 1 11/22/24 07:46 BMI result Body Mass Index 37.4 Const: General: cooperative, comfortable, no acute distress, alert and awake Nutritional Appearance: obese Orientation/consciousness: patient oriented x3 HEENT: Head: Yes normocephalic and Yes atraumatic Neck: Neck: Yes trachea midline, Yes supple and Yes no JVD Resp: Effort & Inspection: normal respiratory effort Auscultation: clear to auscultation bilaterally Cardio: Jugular venous distension: no JVD Rate: regular rate Rhythm: a bnormal rhythm with ectopic beats Heart sounds: S1 normal heart sound present, S2 normal heart sound present, no click, no gallops and no murmurs GI: Auscultation: normal bowel sounds Skin: General skin exam: no rashes or lesions noted Neuro: General: patient oriented x3 and no focal motor deficits Extrem: General: Yes no clubbing, cyanosis or edema Objective Labs and Meds 11/22/24 06:07 11/22/24 06:07 Lab results: Laboratory Results - last 24 hr 11/22/24 06:07 WBC 8.2 RBC 3.13 L D Hgb 11.0 L D Hct 32.8 L MCV 104.8 H MCH 35.1 H MCHC 33.5 RDW 12.9 Plt Count 135 L D MPV 11.7 Immature Gran % (Auto) 0.5 H Neut % (Auto) 74.4 H Lymph % (Auto) 13.4 L [place] % (Auto) 9.6 Eos % (Auto) 1.6 Baso % (Auto) 0.5 Lymph # (Auto) 1.1 L [place] # (Auto) 0.8 Eos # (Auto) 0.1 Baso # (Auto) 0.0 Abs Immat Gran (auto) 0.04 H Absolute Neuts (auto) 6.1 Absolute Nucleated RBC 0.000 Nucleated RBC % (auto) 0.0 Sodium 142 Potassium 3.4 Chloride 104 Carbon Dioxide 25 Anion Gap 16 BUN 26 H Creatinine 1.56 H Estim Creat Clear Calc 36.6 Estimated GFR 42 Random Glucose 114 Calcium 9.5 Magnesium 1.9 Assessment and Plan (1) Paroxysmal A-fib: Status: Acute Patient with prior history of paroxysmal atrial fibrillation without overt recurrence at this point time. Will restart his Eliquis if there are no cardiac contraindications. Also started on metoprolol low-dose see below. Avoidance of stimulants was discussed. No change in therapy. (2) PVCs (premature ventricular contractions): Status: Acute Frequent PVCs, patient aware of it and was told that he had frequent PACs for many years. He is not currently having any symptoms related to it. Noted on the monitor asymptomatic. Replace electrolytes, potassium above 4 magnesium above 2. I would restart metoprolol 25 mg daily to reduce cardiac excitability. No other therapy is recommended. LV ejection fraction is within normal limits. (3) Sinus bradycardia: Status: Acute Reported sinus bradycardia although this appears to be transient as there are no strips associated with it. On the monitor since yesterday there was no significant bradycardia. This could have been related to probably overwhelming sepsis and/or vasopressor therapy. At this point time no other intervention or workup is required. (4) Diastolic dysfunction: Status: Acute Diastolic dysfunction noted on echocardiogram but without overt signs of congestive heart failure at this point time. Patient when he presented with acute distress and medical illness might have had cardiac distress and evidence of elevated BNP and heart failure. Clinically does not have prior history of heart failure. However risk for heart failure in the future. I do not think he requires chronic diuretic therapy at this point time. However this needs to be made aware of and patient needs to be monitored in the future for heart failure syndrome. Will sign of the case at this point time. Thank you for allowing me to partake in his care Procedures Date of Service Date of Service: 11/22/24
[2024-11-22] MEDS: Metoprolol Tartrate 25 MG TABLET PO ×2 (12:12→21:00)
--- NOTE | 2024-11-22 14:47 | P.PNIM_ITS ---
Subjective Subjective Date of Service: 11/22/24 Interval History: seen and examined this morning follow up for colitis/UTI downgraded from the ICU 11/21 Patient awake, alert reports he is feeling better today, has no specific complaints at this time Bella catheter removed, urinating independently Review of Systems Review of Systems: Yes all other systems are reviewed and are negative Constitutional Constitutional: Denies chills and Denies fever(s) Cardiovascular Cardiovascular: Denies chest pain and Denies dyspnea Respiratory Respiratory: Denies cough and Denies dyspnea Gastrointestinal Gastrointestinal: Denies abdominal pain, Denies nausea and Denies vomiting Physical Exam 2 Vital Signs: Vital Signs: Last Vital Signs Temp 97.4 F 11/22/24 12:00 Pulse 89 11/22/24 12:00 Resp 18 11/22/24 12:00 BP 131/55 L 11/22/24 12:00 Pulse Ox 92 11/22/24 13:00 O2 Del Method Room Air 11/22/24 13:00 O2 Flow Rate 1 11/22/24 12:00 BMI result Body Mass Index 37.4 Const: General: cooperative, comfortable, no acute distress, alert and awake Nutritional Appearance: average body habitus Orientation/consciousness: p atient oriented x3 Resp: Effort & Inspection: normal respiratory effort, able to speak in complete sentences, no respiratory distress and no use of accessory muscles Cardio: Rate: regular rate GI: Inspection: No distended Palpation (GI): Soft to palpation and nontender Neuro: Other: Grossly nonfocal General: patient oriented x3, moves all extremities and CN's II-XI intact bilaterally Objective Data Active Medications Acetaminophen (Acetaminophen 325 Mg Tablet) 975 mg PO Q6H PRN PRN Reason: Fever >101 Last Admin: 11/20/24 20:10 Dose: 975 mg Documented By: NICANOR Apixaban (Apixaban 2.5 Mg Tablet) 2.5 mg PO BID [facility] Escitalopram Oxalate (Escitalopram Oxalate 10 Mg Tablet) 10 mg PO DAILY [facility] Last Admin: 11/22/24 07:55 Dose: 10 mg Documented By: RAHEEM Levofloxacin (Levaquin) 750 mg in 150 mls @ 100 mls/hr IV Q48H [facility] Metoprolol Tartrate (Metoprolol Tartrate 25 Mg Tablet) 25 mg PO BID [facility]; Protocol Last Admin: 11/22/24 12:12 Dose: 25 mg Documented By: RAHEEM Mirtazapine (Mirtazapine 15 Mg Tablet) 15 mg PO DAILY [facility] Last Admin: 11/22/24 07:55 Dose: 15 mg Documented By: RAHEEM Multivitamins/Vitamin C (Multivitamin Tablet) 1 tab PO DAILY [facility] Last Admin: 11/22/24 07:55 Dose: 1 tab Documented By: RAHEEM Omeprazole (Omeprazole 20 Mg Capsule.Dr) 20 mg PO DAILY@0630 [facility] Last Admin: 11/22/24 05:35 Dose: 20 mg Documented By: ANTOINC Polyethylene Glycol (Polyethylene Glycol 3350 17 Gm Powd.Pack) 17 gm PO DAILY PRN PRN Reason: Constipation Senna/Docusate Sodium (Sennosides/Docusate Sodium Tablet) 1 tab PO DAILY [facility] Last Admin: 11/22/24 07:59 Dose: Not Given Documented By: RAHEEM Non-Admin Reason: Patient Refused Tamsulosin HCl (Tamsulosin Hcl 0.4 Mg Capsule) 0.4 mg PO DAILY@1700 [facility] Labs 11/22/24 06:07 11/22/24 06:07 Labs: Laboratory Results - last 24 hr 11/22/24 06:07 MCV 104.8 H MCH 35.1 H MCHC 33.5 RDW 12.9 Plt Count 135 L D MPV 11.7 Immature Gran % (Auto) 0.5 H Neut % (Auto) 74.4 H Lymph % (Auto) 13.4 L [place] % (Auto) 9.6 Eos % (Auto) 1.6 Baso % (Auto) 0.5 Lymph # (Auto) 1.1 L [place] # (Auto) 0.8 Eos # (Auto) 0.1 Baso # (Auto) 0.0 Abs Immat Gran (auto) 0.04 H Absolute Neuts (auto) 6.1 Absolute Nucleated RBC 0.000 Nucleated RBC % (auto) 0.0 Anion Gap 16 Estim Creat Clear Calc 36.6 Estimated GFR 42 Random Glucose 114 Calcium 9.5 Magnesium 1.9 Microbiology Microbiology Results: Microbiology 11/20/24 Unknown Urine Culture - Preliminary Urine clean catch - Clean Catch Midstream Gram negative nicky 11/19/24 22:54 Blood Culture - Preliminary Blood - Venous No growth after 48 hours. 11/19/24 22:55 Blood Culture - Preliminary Blood - Venous No growth after 48 hours. Assessment and Plan (1) Sepsis due to urinary tract infection: Status: Acute (2) Colitis: Status: Acute (3) PVCs (premature ventricular contractions): Status: Acute Plan This is an 89-year-old male with a history of hypertension, paroxysmal atrial fibrillation, CKD sent from SNF for fever and malodorous urine found to have fever, hypoxia. Patient became hypotensive despite IV fluid resuscitation and was admitted to ICU for pressor support. CT scan obtained to eval for urinary obstruction but instead revealed colitis, Levaquin. Patient also noted to be bradycardic but asymptomatic Downgraded from the ICU on November 21 Septic shock due to UTI/colitis BP stable, leukocytosis resolved. Afebrile since November 20 continue IV levofloxacin Urine culture growing Gram-negative rods - follow final culture results Blood cultures no growth times 48 hours Bradycardia, resolved Patient asymptomatic, blood pressure stable bigeminy follow lytes started on low dose BB diastolic dysfunction on echo no evidence of chf does not need diuretic at this time per Cardiology Acute respiratory failure with hypoxia Likely due to fluid overload from IV fluids in the setting of sepsis Status post Lasix x1 with improving oxygen requirements Now on room air Thrombocytopenia Likely due to acute infection improving DONNY on probable CKD3 renal function near baseline follow BMP Paroxysmal atrial fibrillation Eliquis on hold while in ICU - will resume Mood Resume Lexapro, remeron BPH resume Flomax DVT prophylaxis resume Eliquis Dispo-likely returned to [facility], PT evaluation pending Quality Stroke Does the patient have a stroke diagnosis?: No VTE Prior VTE?: No VTE Risk Level:: Medical - moderate - high VTE Device Contraindication: N/A - Device Ordered VTE Drug Contraindication: N/A - Med Ordered
[2024-11-22] MEDS: Potassium Chloride ER 20 MEQ TAB.ER.PRT PO (16:08)
[2024-11-22] MEDS: Tamsulosin HCL 0.4 MG CAPSULE PO (16:08)
[2024-11-22] MEDS: Apixaban 2.5 MG TABLET PO (21:00)
[2024-11-23] VITALS: BP 131/64; PULSE 68; RESP 17; TEMP 36.4; O2SAT 95
[2024-11-23 04:00] VITALS: BP 158/82; PULSE 66; RESP 17; TEMP 36.7; O2SAT 94
[2024-11-23] MEDS: Omeprazole 20 MG CAPSULE.DR PO (06:36)
[2024-11-23 06:44] LABS: Anion Gap 15 (12-20); Blood Urea Nitrogen 28 mg/dL (9-16); Calcium 9.4 mg/dL (8.4-10.2); Carbon Dioxide 25 mmol/L (22-29); Chloride 107 mmol/L (96-108); Creatinine Clr Calc Pharmacy 36.1; Estimated Glomerular Filt Rate 42; Glucose Random 133 mg/dL (60-115); Potassium 3.4 mmol/L (3.3-5.1); Sodium 144 mmol/L (135-145)
[2024-11-23 08:00] VITALS: BP 147/79; PULSE 62; RESP 20; TEMP 36.9; O2SAT 96
[2024-11-23 09:36] VITALS: BP 147/79; PULSE 62
[2024-11-23] MEDS: Sennosides/Docusate Sodium TABLET 1 TAB PO (09:36)
[2024-11-23] MEDS: Metoprolol Tartrate 25 MG TABLET PO (09:36)
[2024-11-23] MEDS: Escitalopram Oxalate 10 MG TABLET PO (09:36)
[2024-11-23] MEDS: Apixaban 2.5 MG TABLET PO (09:37)
[2024-11-23] MEDS: Mirtazapine 15 MG TABLET PO (09:37)
[2024-11-23] MEDS: Multivitamin TABLET 1 TAB PO (09:37)
[2024-11-23 11:32] VITALS: BP 157/71; PULSE 62; RESP 20; TEMP 36.3; O2SAT 96
--- NOTE | 2024-11-23 11:53 | PM.DS ---
DS: Providers Provider Date of Service: 11/23/24 Date of admission: 11/20/24 01:25 Date of discharge: 11/23/24 Primary care physician: Unknown Physician Consults: 11/21/24 11:13 Consult to Cardiology Routine Consulting Provider: [facility] Reason for consultation: asymptomatic bradycardia, new CHF, sustained bigeminy Has provider been notified: No Attending physician on discharge: Jayla Tomas Discharging clinician: Karishma Dos Santos DS: Diagnosis Discharge Diagnosis (1) Sepsis due to urinary tract infection: Status: Acute (2) Colitis: Status: Acute (3) PVCs (premature ventricular contractions): Status: Acute DS: Summary Hospital Course Hospital Course: From H&P on the day of admission Mr Young is a 89 year old male with history of hypertension, paroxysmal A-Fib, chronic kidney disease and polyneuropathy who was sent to the emergency room from his skilled? nursing facility for a fever and malodorous urine. The pt denied any abdominal pain or other complaints.? On arrival to the emergency room, temp was 102.5, blood pressure 114/54, heart rate 94.? O2 sat 86% on room air. Laboratory data significant for? WBC 12.1, hemoglobin 10.7, hematocrit 31.8, platelet 158, BUN 33, creatinine 1.73, lactic acid 1.4, BNP 473.? Urinalysis indicative of a UTI.? Respiratory panel negative. Imaging: CXR showed no acute findings.? ED course:? The patient became hypotensive. He received 1700 mL normal saline per sepsis protocol. He was given? ceftriaxone 1 g, Azithromycin 500 mg, 1 bag albumin, acetaminophen 1 g. Despite receiving colloids, crystalloids, antibiotics, the patient remained hypotensive and was started on a norepinephrine drip. This is an 89-year-old male with a history of hypertension, paroxysmal atrial fibrillation, CKD sent from SNF for fever and malodorous urine found to have fever, hypoxia. Patient became hypotensive despite IV fluid resuscitation and was admitted to ICU for pressor support. CT scan obtained to eval for urinary obstruction but instead revealed colitis, and antibiotics were changed to IV Levaquin although the patient has not had any abdominal pain or diarrhea. Consideration of follow-up colonoscopy is recommended to exclude underlying mass. Patient also noted to be bradycardic but asymptomatic. He was downgraded from the ICU on November 21. He was treated for Septic shock due to UTI/colitis. BP has remained stable since downgrade from the ICU, leukocytosis resolved has remained afebrile since November 20. Urine culture growing Providencia Rettgeri and proteus mirabilis which are both sensitive to fluoroquinolones. Blood cultures have remained negative to date. We will be discharged to complete course of oral antibiotics. Bradycardia, resolved after pressors were discontinued. Patient was noted to have frequent bigeminy, he was evaluated by Cardiology who recommended low-dose beta-hermelinda. Echocardiogram was obtained which showed evidence of diastolic dysfunction however he appears to be euvolemic at this time, Cardiology does not feel that diuretics upon discharge. Outpatient follow-up with Cardiology can be pursued Acute respiratory failure with hypoxia Likely due to fluid overload from IV fluids in the setting of sepsis. Status post Lasix x1 with improving oxygen requirements. Thrombocytopenia Likely due to acute infection. Improving. Repeat CBC in 1 week DONNY on probable CKD3 no labs for comparison. renal function stable. Can repeat BMP in 1 weeks Time Attestation Discharge Coordination Time (in mins): 35 Quality: Safe Use of Opioids Does Pt have an Active Cancer Diagnosis on the Problem List?: No Quality: Stroke Does the patient have a stroke diagnosis?: No Physical Exam Vital Signs: Vital Signs: Last Vital Signs Temp 97.4 F 11/23/24 11:32 Pulse 62 11/23/24 11:32 Resp 20 11/23/24 11:32 BP 157/71 H 11/23/24 11:32 Pulse Ox 96 11/23/24 11:32 O2 Del Method Nasal Cannula 11/23/24 11:32 O2 Flow Rate 1 11/23/24 11:32 BMI result Body Mass Index 37.4 Const: General: cooperative, comfortable, no acute distress, alert and awake Nutritional Appearance: average body habitus Orientation/consciousness: patient oriented x3 Resp: Effort & Inspection: normal respiratory effort, able to speak in complete sentences, no respiratory distress and no use of accessory muscles Cardio: Rate: regular rate GI: Inspection: No distended Palpation (GI): Soft to palpation and nontender Neuro: Other: Grossly nonfocal General: patient oriented x3, moves all extremities and CN's II-XI intact bilaterally DS: Data Data Completed and Pending Completed studies during hospitalization [Text1]: Urine Culture Final 11/23/24-741 Organism 1 Providencia rettgeri Quant > 100,000 cfu/mL Organism 2 Proteus mirabilis Quant 50,000 to 100,000 cfu/mL P rettgeri P mirabili M.I.C. RX M.I.C. RX --------- --- --------- --- Ampicillin 16 R <=2 S Cefazolin >=32 R Cefazolin (Urine) <=1 S Cefepime 1 S <=0.12 S Ceftriaxone <=0.25 S <=0.25 S Ciprofloxacin <=0.06 S <=0.06 S Gentamicin <=1 S <=1 S Nitrofurantoin 128 R 128 R Trimethoprim/Sulfamethoxazole <=20 S <=20 S Labs on day of discharge: Laboratory Results - last 24 hr 11/23/24 05:58 Hold Purple Top SEE NOTE Sodium 144 Potassium 3.4 Chloride 107 Carbon Dioxide 25 Anion Gap 15 BUN 28 H Creatinine 1.58 H Estim Creat Clear Calc 36.1 Estimated GFR 42 Random Glucose 133 H Calcium 9.4 Preliminary micro results at discharge 11/19/24 22:54 Blood Culture - Preliminary Blood - Venous No growth after 48 hours. 11/19/24 22:55 Blood Culture - Preliminary Blood - Venous No growth after [address] scan - abdomen: Radiologist's impression: ITS Impressions Abdomen/Pelvis CT 11/20/24 10:08 IMPRESSION: 1. Inflammatory process centered at the hepatic flexure of the colon with associated diverticulosis, wall thickening, and pericolonic fluid. Findings may represent diverticulitis. Follow-up colonoscopy is recommended to exclude an underlying mass. 2. No evidence of hydronephrosis. Electronically signed by: Negro Rodríguez MD 11/20/2024 11:20 AM EDT Discharge Plan Discharge Patient Disposition: [facility] Discharge Diagnosis: sepsis due to UTI colitis DONNY on probable CKD3 diastolic dysfunction bradycardia frequent bigeminy Referrals: Physician,Unknown J [Primary Care Provider] - 1 Week Discharge Medications: New metoprolol tartrate 25 mg Tablet 25 mg PO BID Qty: 90 0RF Protocol: Hold for SBP/HR < HOLD for SBP < : 90 HOLD for HR < : 60 levofloxacin 750 mg tablet 750 mg PO Q48H 5 Days Qty: 3 0RF metronidazole 500 mg tablet 500 mg PO Q12H 5 Days Qty: 10 0RF Continued multivitamin Tablet 1 tab PO DAILY acetaminophen [Tylenol] 325 mg Tablet 650 mg PO Q6H PRN (Reason: Fever/Pain) trolamine salicylate 10 % Lotion 1 appl TOPICAL Q8H PRN (Reason: Pain) polyethylene glycol 3350 [Miralax] 17 gram Powder In Packet 17 g PO DAILY PRN (Reason: Constipation) Rx Instructions: Dissolve 17gm into 4-8oz of water as needed. melatonin 3 mg Tablet 3 mg PO BEDTIME PRN (Reason: Sleep) magnesium hydroxide [Milk of Magnesia] 400 mg/5 mL Suspension 30 ml PO DAILY PRN (Reason: Constipation) ascorbic acid (vitamin C) 500 mg Tablet 500 mg PO DAILY tamsulosin [Flomax] 0.4 mg Capsule 0.4 mg PO DAILY@1700 bisacodyl 10 mg Suppository 10 mg MS DAILY PRN (Reason: Constipation) Fleet Enema 19-7 gram/118 mL Enema 118 ml MS DAILY PRN (Reason: Constipation) omeprazole 20 mg Capsule,Delayed Release(Dr/Ec) 20 mg PO DAILY@0630 mirtazapine [Remeron] 15 mg Tablet 15 mg PO DAILY escitalopram oxalate 10 mg Tablet 10 mg PO DAILY gabapentin 100 mg Tablet 100 mg PO BID carboxymethylcellulose sodium Drops 1 drp OPHTHALMIC (EYE) Q4H PRN (Reason: Dry Eyes) cholecalciferol (vitamin D3) [Vitamin D3] 50 mcg (2,000 unit) Tablet 50 mcg PO DAILY Eliquis 2.5 mg Tablet 2.5 mg PO BID sennosides-docusate sodium 8.6-50 mg Capsule 1 tab-cap PO DAILY Discharge Orders: Discharge Order (Routine); Ordered 11/23/24 Ordered By: Karishma Dos aSntos Activity on Discharge: As tolerated Stand Alone Forms: Patient Portal Discharge page Print Language: Albanian Care Plan Goals: see below Health Concerns: Sepsis due to UTI caused by Providencia and Proteus Evidence of colitis on CT scan-patient asymptomatic Bradycardia, frequent bigeminy Diastolic dysfunction on echocardiogram thrombocytopenia DONNY on ?CKD Plan of Treatment: Plan to complete 5 more days of really dose levofloxacin for treatment of UTI levofloxacin and flagyl for possible colitis - consider follow up colonoscopy due to inflammatory changes at the hepatic flexure of the colon seen on CT scan Started on metoprolol to reduce cardiac excitability Not started on diuretics, no overt signs of CHF repeat CBC in one week to assess platelets uncertain baseline renal function. repeat BMP in one week Assessment: See discharge summary
== END 2024-11-23 16:08 | DRG 871 ==
LOC: HO.ED 11-20 01:37 → HO.EDOVER 11-20 02:05 → HO.ICU 11-20 02:07 → HO.IMC 11-21 13:09
PROVIDERS: Internal Medicine Pulmonary Disease; Admitting Provider Nurse Practitioner Family; Emergency Provider Emergency Medicine; PCP Internal Medicine; Visit Provider Physician Assistant Medical
DX: A41.9 Sepsis, unspecified organism (principal); J96.01 Acute respiratory failure with hypoxia; R65.21 Severe sepsis with septic shock; I13.10 Hypertensive heart and chronic kidney disease without heart failure, with stage 1 through stage 4 chronic kidney disease, or unspecified chronic kidney disease; N18.30 Chronic kidney disease, stage 3 unspecified; R00.1 Bradycardia, unspecified; I49.3 Ventricular premature depolarization; N40.0 Benign prostatic hyperplasia without lower urinary tract symptoms; B96.4 Proteus (mirabilis) (morganii) as the cause of diseases classified elsewhere; K52.9 Noninfective gastroenteritis and colitis, unspecified; D69.59 Other secondary thrombocytopenia; G62.9 Polyneuropathy, unspecified; I48.0 Paroxysmal atrial fibrillation; Z20.822 Contact with and (suspected) exposure to COVID-19; Z79.01 Long term (current) use of anticoagulants; Z79.899 Other long term (current) drug therapy
CPT/HCPCS: 0241U; 36415; 71045; 74176; 80048; 80076; 81001; 82040; 82803; 83605; 83735; 83880; 84100; 85025; 87040; 87086; 87088; 87186; 93005; 93306; 97162; 99285; J0456; J0696; J1644; J1938; J1956; P9047; Q9957

== ENCOUNTER → 2024-11-20 00:51 | Outpatient (BNV) | payer MEDICARE, MEDICAID, SELFPAY | PROVIDERS: Emergency Provider Emergency Medicine; Visit Provider Radiology Diagnostic Radiology | DX: K57.41 Diverticulitis of both small and large intestine with perforation and abscess with bleeding (principal); R06.02 Shortness of breath | CPT/HCPCS: 71045; 74176 ==

== ENCOUNTER 2024-11-20 01:25 | Outpatient (BNV) | payer MEDICARE, MEDICAID, SELFPAY | END 2024-11-20 03:11 | PROVIDERS: Admitting Provider Nurse Practitioner Family; Emergency Provider Emergency Medicine; Visit Provider Internal Medicine Cardiovascular Disease | DX: I50.30 Unspecified diastolic (congestive) heart failure (principal); I51.7 Cardiomegaly; I35.1 Nonrheumatic aortic (valve) insufficiency; I49.1 Atrial premature depolarization; I45.10 Unspecified right bundle-branch block | CPT/HCPCS: 93010; 93306 ==

== ENCOUNTER → 2024-11-20 01:25 | Outpatient (BNV) | payer MEDICARE, MEDICAID, SELFPAY | PROVIDERS: Admitting Provider Nurse Practitioner Family; Emergency Provider Emergency Medicine; Visit Provider Internal Medicine Cardiovascular Disease | DX: I48.0 Paroxysmal atrial fibrillation (principal); I49.3 Ventricular premature depolarization; R00.1 Bradycardia, unspecified; I51.89 Other ill-defined heart diseases | CPT/HCPCS: 99222 ==

== ENCOUNTER → 2024-11-20 01:25 | Outpatient (BNV) | payer MEDICARE, MEDICAID, SELFPAY | PROVIDERS: Admitting Provider Nurse Practitioner Family; Emergency Provider Emergency Medicine; Visit Provider Physician Assistant Medical | DX: A41.9 Sepsis, unspecified organism (principal); N39.0 Urinary tract infection, site not specified; K52.9 Noninfective gastroenteritis and colitis, unspecified; I49.3 Ventricular premature depolarization | CPT/HCPCS: 99232; 99239; 99499 ==

== ENCOUNTER → 2024-11-20 01:25 | Outpatient (BNV) | payer MEDICARE, MEDICAID, SELFPAY | PROVIDERS: Admitting Provider Nurse Practitioner Family; Emergency Provider Emergency Medicine; Visit Provider Nurse Practitioner Family | DX: I50.9 Heart failure, unspecified (principal); A41.9 Sepsis, unspecified organism; N39.0 Urinary tract infection, site not specified | CPT/HCPCS: 99222 ==

== ENCOUNTER → 2024-11-20 01:25 | Outpatient (BNV) | payer MEDICARE, MEDICAID, SELFPAY | PROVIDERS: Admitting Provider Nurse Practitioner Family; Emergency Provider Emergency Medicine; Visit Provider Internal Medicine Pulmonary Disease | DX: I48.0 Paroxysmal atrial fibrillation (principal); I12.9 Hypertensive chronic kidney disease with stage 1 through stage 4 chronic kidney disease, or unspecified chronic kidney disease; N18.9 Chronic kidney disease, unspecified; K52.9 Noninfective gastroenteritis and colitis, unspecified | CPT/HCPCS: 99291 ==